=== PATIENT | female | born 1980 | race Caucasian/White ===

== ENCOUNTER 2019-12-07 12:57 | Emergency (ER) | payer OTHER ==
[~2019-12-07] VITALS: Ht 182.9 cm; Wt 238.1 kg
--- OUTSIDE RECORDS SUMMARY | ~2019-12-07 | XMS | Encounter Summary ---
Demographics + + + | Address | [address] | | | [place] [address] | + + + | Home Phone | | + + + | Preferred Language | Unknown | + + + | Marital Status | Single | + + + | Anabaptist Affiliation | Unknown | + + + | Race | White | + + + | Ethnic Group | Not or | + + + Author + + + | Author | [facility] | | | and [place] | + + + | Organization | [facility] | | | and [place] | + + + | Address | Unknown | + + + | Phone | Unavailable | + + + Support + + +---------+ + | Name | Relationship | Address | Phone | + + +---------+ + | Jarett E Chad | ECON | Unknown | | + + +---------+ + Care Team Providers + +------+ + | Care Senior Controls Technician Name | Role | Phone | + +------+ + | Seamus Stokes DO | PCP | | + +------+ + Reason for Visit + + + | Reason | Comments | + + + | New Patient | | + + + Evaluate & Treat (Routine) + +--------+ + + + + | Status | Reason | Specialty | Diagnoses / | Referred By | Referred To | | | | | Procedures | Contact | Contact | + +--------+ + + + + | Authorized | | Cardiology | Diagnoses | Divya, | [facility] | | | | | | Seamus, | Cardiology | | | | | Uncontrolled | [address] | [address] | | | | | | [place] | [place], | | | | | hypertension | [place], [place] | [place] | | | | | LVH (left | [phone] | [address] | | | | | ventricular | Phone: | Phone: | | | | | hypertrophy) | [phone] | [phone] | | | | | Procedures | Fax: | Fax: | | | | | [facility] | [phone] | [phone] | + +--------+ + + + + Encounter Details +--------+---------+ + + + | Date | Type | Department | Care Team | Description | +--------+---------+ + + + | 05/03/ | Office | [facility] | Lauri Webb | Uncontrolled | | 2020 | Visit | CARDIOLOGY [address] | [address] | hypertension | | | | [address], | [address] [place] | (Primary Dx); | | | | [place] [address] | [place] [address] | Tachycardia; LVH | | | | [phone] | [phone] | (left ventricular | | | | | | hypertrophy); | | | | | | Hypertensive | | | | | | urgency; Morbid | | | | | | obesity (HCC); SOB | | | | | | (shortness of | | | | | | breath) | +--------+---------+ + + + Social History + +-------+ +--------+------+ | Tobacco Use | Types | Packs/Day | Years | Date | | | | | Used | | + +-------+ +--------+------+ | Never Smoker | | | | | + +-------+ +--------+------+ + +---+---+---+ | Smokeless Tobacco: | | | | | Never Used | | | | + +---+---+---+ + + +---------+ + | Alcohol Use | Drinks/Week | oz/Week | Comments | + + +---------+ + | Yes | | | | + + +---------+ + + + + | Sex Assigned at | Date Recorded | | | | + + + | Not on file | | + + + documented as of this encounter Last Filed Vital Signs + + + + + | Vital Sign | Reading | Time Taken | Comments | + + + + + | Blood Pressure | 260/150 | 05/04/2019 3:09 PM | | | | | PST | | + + + + + | Pulse | 104 | 05/04/2019 3:09 PM | | | | | PST | | + + + + + | Temperature | - | - | | + + + + + | Respiratory Rate | 24 | 05/04/2019 3:09 PM | | | | | PST | | + + + + + | Oxygen Saturation | - | - | | + + + + + | Inhaled Oxygen | - | - | | | Concentration | | | | + + + + + | Weight | 236 kg (520 lb 4.6 | 05/04/2019 3:09 PM | | | | oz) | PST | | + + + + + | Height | 182.9 cm (6') | 05/04/2019 3:09 PM | | | | | PST | | + + + + + | Body Mass Index | 70.56 | 05/04/2019 3:09 PM | | | | | PST | | + + + + + documented in this encounter Progress Notes Lauri Webb MD - 05/04/2019 3:30 PM PSTFormatting of this note might be differe nt from the original. PATIENT NAME: Carol Jones : 1980: AGE: 39 y.o. REFERRED BY: Seamus Stokes DO PRIMARY CARE: Seamus Stokes DO CARDIOLOGY OFFICE VISIT Date of Service: 05/04/19 HISTORY OF PRESENT ILLNESS: Carol Jones is a 39 y.o. female with a history of severe, refractory hypertensio n, morbid obesity, anxiety/depression, migraines, and PCOD. She is being seen today for fur ther consultation. She is referred by Seamus Stokes DO for further evaluation given history of severe hyperte nsion. Patient states that she was last prescribed a maximal dose of diltiazem which exacer bated her headaches and she has not taken it in many weeks. For many years in the past, she has been without health insurance and had not been taking any medications. She believes th at for some time she was on lisinopril which she tolerated well and took until she lost her health coverage. She also states that she had managed to take clonidine without difficulty. Her history of severe refractory hypertension dates back approximately 10 years, and appea rs to have been better controlled approximately 5 years ago for unclear reasons. She has been aware of the possibility of obstructive sleep apnea but has not been intereste d in testing and refuses to consider wearing a CPAP mask. She is unaware of previous testin g for renal artery stenosis. She exceeds weight limits of most diagnostic tables. She works near full-time and can manage every day activity without difficulty. She ambulat es without any assistive devices. She denies any exertional symptoms or chest pain. She wasserman s no history of cardiovascular disease, heart failure, myocardial infarction, stroke/TIA or cardiomyopathy. MEDICAL, SURGICAL, AND PERSONAL HISTORY Past Medical History: Diagnosis Date Arthritis 04/12/2019 Asthma Carpal tunnel syndrome on right 04/12/2019 Depression 04/12/2019 Hypothyroid 04/12/2019 Renal insufficiency Scoliosis 04/12/2019 SOB (shortness of breath) 04/12/2019 Tachycardia 04/12/2019 Past Surgical History: Procedure Laterality Date CARPAL TUNNEL RELEASE CHOLECYSTECTOMY Family History Problem Relation Age of Onset Diabetes Mother Osteoporosis Mother Ovarian cancer Mother Thyroid disease Maternal Grandmother hypothyroidism Diabetes Maternal Grandfather Bipolar disorder Maternal Grandfather Heart disease Paternal Grandmother Thyroid disease Paternal Grandmother hypothyroidism Heart disease Paternal Grandfather Endometriosis Other Rheum arthritis Other Lupus Other Family Status Relation Name Status Mother (Not Specified) MGM (Not Specified) MGF (Not Specified) PGM (Not Specified) PGF (Not Specified) Other (Not Specified) Social History Socioeconomic History Marital status: Single Spouse name: Not on file Number of children: Not on file Years of education: Not on file Highest education level: Not on file Tobacco Use Smoking status: Never Smoker Smokeless tobacco: Never Used Substance and Sexual Activity Alcohol use: Yes CURRENT MEDICATIONS Current Outpatient Medications Medication Sig Dispense Refill albuterol 90 mcg/puff inhaler Inhale 2 puffs into the lungs every 6 hours as needed for Wheezing. 1 Inhaler 0 Ascorbic Acid (VITAMIN C) 1000 MG tablet Take 1,000 mg by mouth Daily. budesonide-formoterol (SYMBICORT) 160-4.5 mcg/puff inhaler Inhale 1 puff into the lungs 2 times daily. cholecalciferol (VITAMIN D-3) 125 mcg (5,000 units) tablet Take 125 mcg by mouth Daily. diclofenac (VOLTAREN) 1% GEL Apply 2 g topically as needed. 3 dilTIAZem (CARDIZEM CD) 120 mg 24 hr capsule Take 120 mg by mouth Daily. Takes along wi th 360 mg capsule for a total of 480 mg. dilTIAZem (CARDIZEM CD) 360 MG 24 hr capsule Take 360 mg by mouth Daily. Takes along wi th 120 mg capsule for a total of 480 mg. medroxyPROGESTERone (DEPO-PROVERA) 150 mg/mL injection (vial) Inject 150 mg into the mu scle Every 3 months. melatonin 5 mg tablet Take 5 mg by mouth nightly as needed for Insomnia. ondansetron (ZOFRAN ODT) 4 mg disintegrating tablet Take 4 mg by mouth as needed. 3 spironolactone (ALDACTONE) 25 mg tablet Take 25 mg by mouth Daily. SUMAtriptan (IMITREX) 25 mg tablet Take 25 mg by mouth as needed. 1 vitamin B complex capsule Take 1 capsule by mouth Daily. No current facility-administered medications for this visit. ALLERGIES Allergies Allergen Reactions Benadryl Anti-Itch Childrens [Camphor] Anaphylaxis Morphine Anaphylaxis Grass Extracts [Gramineae Pollens] Other (See Comments) Clarify with patient. Iron Other (See Comments) Clarify with patient Lactose Other (See Comments) Clarify with patient Latex Rash ROS I have reviewed the Review of Systems form dated today and scanned into the media tab. OBJECTIVE: PHYSICAL EXAM BP (!) 260/150 | Pulse 104 | Resp 24 | Ht 1.829 m (6') | Wt (!) 236 kg (520 lb 4.6 oz) | BMI 70.56 kg/m Physical Exam Constitutional: She is oriented to person, place, and time. She appears well-developed and well-nourished. HENT: Head: Normocephalic. Eyes: No scleral icterus. Neck: Normal carotid pulses and no JVD present. Carotid bruit is not present. Cardiovascular: Regular rhythm, S1 normal, S2 normal, normal heart sounds, intact distal pu lses and normal pulses. Tachycardia present. PMI is not displaced. Exam reveals no gallop an d no midsystolic click. No murmur heard. Pulses: Carotid pulses are 2+ on the right side and 2+ on the left side. Radial pulses are 2+ on the right side and 2+ on the left side. Pulmonary/Chest: Effort normal and breath sounds normal. No accessory muscle usage. No resp iratory distress. She has no wheezes. She has no rhonchi. She has no rales. Abdominal: Soft. Normal aorta and bowel sounds are normal. She exhibits no abdominal bruit. There is no hepatosplenomegaly. There is no abdominal tenderness. Morbidly obese. Musculoskeletal: General: No edema. Neurological: She is alert and oriented to person, place, and time. Gait normal. Skin: Skin is warm and dry. No cyanosis. Nails show no clubbing. Psychiatric: She has a normal mood and affect. Her mood appears not anxious. She does not e xhibit a depressed mood. Vitals reviewed. ECG: Reviewed by me notable for sinus tachycardia, heart rate 103, voltage criteria for LVH with repolarization abnormality. LAB RESULTS: LIPID Lab Results Component Value Date LDLEX 108 (A) 11/19/2018 HDLEX 5 11/19/2018 TRIGEX 153 11/19/2018 CHOLEX 177 11/19/2018 CHEMISTRY Lab Results Component Value Date GLU 105 11/12/2018 GLUEX 109 (A) 11/19/2018 NA 140 11/12/2018 NAEX 137 11/19/2018 K 3.2 (L) 11/12/2018 KEX 3.0 (A) 11/19/2018 CL 104 11/12/2018 CLEX 98 11/19/2018 CO2 25 11/12/2018 CO2EX 29 11/19/2018 CALCIUM 9.7 11/12/2018 ALKPHOS 73 11/12/2018 AST 23 11/12/2018 ASTEX 30 11/19/2018 ALT 34 11/12/2018 ALTEX 40 11/19/2018 BILITOT 0.5 11/12/2018 CREA 1.04 (H) 11/12/2018 BUN 14 11/12/2018 EGFREX 53 11/19/2018 CREEX 1.1 11/19/2018 HEMATOLOGY Lab Results Component Value Date WBC 10.2 11/12/2018 HGB 13.3 11/12/2018 HCT 41.6 11/12/2018 PLT 261 11/12/2018 I reviewed records from PCP for office visit on 12/01/2018. Ambulatory blood pressure log January 2014 results reviewed by me notable for average syst olic 149 mmHg, average diastolic 75 mmHg, average heart rate 83 bpm. ASSESSMENT: 1. Severe, refractory hypertension -patient's blood pressure today was assessed via attemp ts at measurement via her forearm, and repeated. Patient admits that she has not been on an y antihypertensives per weeks and stopped taking diltiazem sometime ago because of complaint s of headaches. We discussed my recommendation that she go to emergency room for intravenou s medical therapy and further observation before going home, however patient is not interest ed, and states that in the past she has not been a good candidate for intravenous access in any event. She wishes to go home. In the past she has been intolerant to lisinopril. We will prescribe this at her previous dose of 20 mg daily. I have urged her to check her chemistry panel including renal function and electrolytes prior to her upcoming appointment with her primary provider within 1 week. In terms of contributing factors towards secondary hypertension, she can be safely presumed to have some degree of underlying obstructive sleep apnea given her morbid obesity. She is not interested in further testing or any attempts at CPAP mask therapy in any event. Her w eight exceeds table limits to be adequately assessed for possibility of renal artery stenosi s. Her exam is similarly limited. In any event, first she needs to be compliant with 3 or more antihypertensive agents before any further testing for rare causes such as endocrine ab normalities are warranted. We discussed at length importance of medical compliance. We als o discussed at length importance of some semblance of antihypertensive control, especially v is--vis neurologic sequelae which were reviewed at length. Patient denies having had any of them including no cognitive issues, including no visual or speech difficulty, or issues w ith ambulation. She may benefit from future additional therapy with several other agents including beta-blo cker therapy given her resting tachycardia - and assess for respiratory tolerance - and ALEJANDRA inhibitor versus ARB therapy (her renal parameters are within normal limits at this point) a nd other agents such as clonidine. She may also respond well to attempts at diuretic therap y. We also discussed importance of minimizing her caffeine use which she admits is excessive. She indulges in energy drinks in addition to significant amount of coffee, which she states helps manage her ADHD. I cautioned her against use of amphetamine derivatives to treat ADH D given her baseline tachycardia and extreme hypertension. Her ECG suggests underlying LVH which is not surprising. Her examination, albeit limited, did not suggest significant underlying valvular disease. PLAN: 1. Resume lisinopril therapy given prior tolerance. Consider future additional therapy wi th other agents such as beta blockers, ALEJANDRA inhibitor/ARB, and clonidine plus consideration o f diuretic therapy. 2. Recheck chemistry panel prior to follow-up visit with primary physician. 3. Importance of medical compliance reinforced. 4. Minimize caffeine use and improve hydration. 5. Patient refuses transfer to emergency department for intravenous medical therapy and fu rther monitoring today. 6. Neurologic sequelae of extreme hypertension and TIA versus CVA reviewed with the eneida t today. 7. Further cardiovascular diagnostics not feasible given morbid obesity, and not especiall y indicated in any event. 8. Follow-up in an as-needed basis. I spent 60 minutes face to face with the patient, with over 50% spent in counseling and/or coordination of care regarding severe, refractory hypertension and suggestions for further w ork-up and management. Portions of this report were transcribed using voice recognition software. Every effort wa s made to ensure accuracy; however, inadvertent computerized fish and wildlife scientific aid errors may be pre sent. Electronically signed by: Ben Webb MD PhD FACC 05/04/2019 documented in t his encounter Miscellaneous Notes Addendum Note - Oswaldo Matos RN - 05/04/2019 3:30 PM PST Addended by: OSWALDO MATOS on: 05/05/2019 09:27 AM Modules accepted: Orders documented in this encounter Plan of Treatment + +------+--------+ + + | Name | Type | Priori | Associated Diagnoses | Order Schedule | | | | ty | | | + +------+--------+ + + | Basic Metabolic | Lab | Routin | Uncontrolled | Expected: | | Panel | | e | hypertension | 05/12/2019, Expires: | | | | | | 05/04/2020 | + +------+--------+ + + documented as of this encounter Procedures + +--------+ + + + | Procedure Name | Priori | Date/Time | Associated Diagnosis | Comments | | | ty | | | | + +--------+ + + + | ECG 12 LEAD | Routin | 05/04/2019 | Uncontrolled | Results for this | | | e | 3:21 PM | hypertension | procedure are in the | | | | PST | Tachycardia | results section. | + +--------+ + + + documented in this encounter Results ECG 12 lead (05/04/2019 3:21 PM PST) + + + + + + | Component | Value | Ref Range | Performed | Pathologist | | | | | At | Signature | + + + + + + | VENTRICULAR | 103 | BPM | [facility] | | | RATE EKG | | | | | + + + + + + | ATRIAL RATE | 103 | BPM | [facility] | | + + + + + + | P-R | 172 | ms | [facility] | | | INTERVAL | | | | | + + + + + + | QRS | 112 | ms | [facility] | | | DURATION | | | | | + + + + + + | Q-T | 368 | ms | [facility] | | | INTERVAL | | | | | + + + + + + | Q-T | 482 | ms | [facility] | | | INTERVAL | | | | | | (CORRECTED) | | | | | + + + + + + | P WAVE AXIS | 31 | degrees | [facility] | | + + + + + + | QRS AXIS | -28 | degrees | [facility] | | + + + + + + | T AXIS | 68 | degrees | [facility] | | + + + + + + | INTERPRETAT | Sinus tachycardiaLeft | | [facility] | | | ION TEXT | ventricular hypertrophy | | | | | | with repolarization | | | | | | abnormalityAbnormal | | | | | | ECGWhen compared with | | | | | | ECG of 12-NOV-2018 | | | | | | 11:19,No significant | | | | | | change was | | | | | | foundConfirmed by | | | | | | ESTHER BASILIO, KACEY | | | | | | ([id number]) on 05/06/2019 | | | | | | 12:46:21 PM | | | | + + + + + + + + | Specimen | + + | | + + + + + | Narrative | Performed At | + + + | | | + + + + +---------+ + + | Performing | Address | City/State/Zipcode | Phone Number | | Organization | | | | + +---------+ + + | [facility] | | | | + +---------+ + + documented in this encounter Visit Diagnoses + + | Diagnosis | + + | Uncontrolled hypertension - Primary Unspecified essential hypertension | + + | Tachycardia Tachycardia, unspecified | + + | LVH (left ventricular hypertrophy) Cardiomegaly | + + | Hypertensive urgency Unspecified essential hypertension | + + | Morbid obesity (HCC) Morbid obesity | + + | SOB (shortness of breath) Shortness of breath | + + documented in this encounter"
--- OUTSIDE RECORDS SUMMARY | ~2019-12-07 | XMS | Clinical Summary ---
Demographics + + + | Address | [address] | | | [place] [address] | + + + | Home Phone | | + + + | Preferred Language | Unknown | + + + | Marital Status | Single | + + + | Episcopal Affiliation | Unknown | + + + | Race | White | + + + | Ethnic Group | Not or | + + + Author + + + | Author | [facility] | | | and [place] | + + + | Organization | [facility] | | | [...] Team Providers + +------+ + | Care Hematology Technologist Name | Role | Phone | + +------+ + | Seamus Stokes DO | PCP | | + +------+ + Allergies + + + + + + | Active Allergy | Reactions | Severity | Noted | Comments | | | | | Date | | + + + + + + | Camphor | Anaphylaxis | High | 10/11/19 | | | | | | 19 | | + + + + + + | Gramineae Pollens | Other (See Comments) | | 04/12/19 | Clarify with | | | | | 20 | patient. | + + + + + + | Iron | Other (See Comments) | | 04/12/19 | Clarify with | | | | | 20 | patient | + + + + + + | Lactose | Other (See Comments) | | 04/12/19 | Clarify with | | | | | 20 | patient | + + + + + + | Latex | Rash | Low | 10/11/19 | | | | | | 19 | | + + + + + + | Morphine | Anaphylaxis | High | 10/11/19 | | | | | | 19 | | + + + + + + Medications + + + +---------+------+------+-------+ | Medication | Sig | Dispensed | Refills | Star | End | Statu | | | | | | t | Date | s | | | | | | Date | | | + + + +---------+------+------+-------+ | albuterol 90 | Inhale 2 puffs into | 1 | 0 | 10/31 | | Activ | | mcg/puff inhaler | the lungs every 6 | Inhaler | | 3/20 | | e | | | hours as needed for | | | 19 | | | | | Wheezing. | | | | | | + + + +---------+------+------+-------+ +---+ + | | Additional | | | InformationPatient | | | not taking. Reported | | | on 05/04/2019 3:18 | | | PM | +---+ + + + +--------+---+------+---+-------+ | SUMAtriptan | Take 25 mg by mouth | | 1 | 090 | | Activ | | (IMITREX) 25 mg | as needed. | | | 06/19 | | e | | tablet | | | | 19 | | | + + +--------+---+------+---+-------+ | diclofenac | Apply 2 g topically | | 3 | 08 | | Activ | | (VOLTAREN) 1% GEL | as needed. | | | 05/19 | | e | | | | | | 19 | | | + + +--------+---+------+---+-------+ | ondansetron | Take 4 mg by mouth | | 3 | 05/2 | | Activ | | (ZOFRAN ODT) 4 mg | as needed. | | | 0 | | e | | disintegrating | | | | 19 | | | | tablet | | | | | | | + + +--------+---+------+---+-------+ | dilTIAZem | Take 360 mg by mouth | | 0 | | | Activ | | (CARDIZEM CD) 360 MG | Daily. Takes along | | | | | e | | 24 hr capsule | with 120 mg capsule | | | | | | | | for a total of 480 | | | | | | | | mg. | | | | | | + + +--------+---+------+---+-------+ | | Inject 150 mg into | | 0 | | | Activ | | medroxyPROGESTERone | the muscle Every 3 | | | | | e | | (DEPO-PROVERA) 150 | months. | | | | | | | mg/mL injection | | | | | | | | (vial) | | | | | | | + + +--------+---+------+---+-------+ | melatonin 5 mg | Take 5 mg by mouth | | 0 | | | Activ | | tablet | nightly as needed | | | | | e | | | for Insomnia. | | | | | | + + +--------+---+------+---+-------+ | | Inhale 1 puff into | | 0 | | | Activ | | budesonide-formotero | the lungs 2 times | | | | | e | | l (SYMBICORT) | daily. | | | | | | | 160-4.5 mcg/puff | | | | | | | | inhaler | | | | | | | + + +--------+---+------+---+-------+ | cholecalciferol | Take 125 mcg by | | 0 | | | Activ | | (VITAMIN D-3) 125 | mouth Daily. | | | | | e | | mcg (5,000 units) | | | | | | | | tablet | | | | | | | + + +--------+---+------+---+-------+ | Ascorbic Acid | Take 1,000 mg by | | 0 | | | Activ | | (VITAMIN C) 1000 MG | mouth Daily. | | | | | e | | tablet | | | | | | | + + +--------+---+------+---+-------+ | vitamin B complex | Take 1 capsule by | | 0 | | | Activ | | capsule | mouth Daily. | | | | | e | + + +--------+---+------+---+-------+ | dilTIAZem | Take 120 mg by mouth | | 0 | | | Activ | | (CARDIZEM CD) 120 mg | Daily. Takes along | | | | | e | | 24 hr capsule | with 360 mg capsule | | | | | | | | for a total of 480 | | | | | | | | mg. | | | | | | + + +--------+---+------+---+-------+ | lisinopril | Take 1 tablet by | 90 | 3 | 03/0 | | Activ | | (PRINIVIL, ZESTRIL) | mouth Daily. | tablet | | 5/20 | | e | | 20 mg | | | | 20 | | | | tabletIndications: | | | | | | | | Uncontrolled | | | | | | | | hypertension | | | | | | | + + +--------+---+------+---+-------+ Active Problems + + + | Problem | Noted Date | + + + | LVH (left ventricular hypertrophy) | 04/12/2019 | + + + | Anxiety | 04/12/2019 | + + + | Depression | 04/12/2019 | + + + | Hypokalemia | 04/12/2019 | + + + | Morbid obesity | 04/12/2019 | + + + | Polycystic ovarian syndrome | 04/12/2019 | + + + | SOB (shortness of breath) | 04/12/2019 | + + + | Scoliosis | 04/12/2019 | + + + | Arthritis | 04/12/2019 | + + + | Hypothyroid | 04/12/2019 | + + + | Tachycardia | 04/12/2019 | + + + | Hypertensive urgency | 04/12/2019 | + + + | Carpal tunnel syndrome on right | 04/12/2019 | + + + | Uncontrolled hypertension | 02/02/2014 | + + + | Asthma | | + + + Family History + + +------+ + | Medical History | Relation | Name | Comments | + + +------+ + | Bipolar disorder | Maternal | | | | | Grandfath | | | | | er | | | + + +------+ + | Diabetes | Maternal | | | | | Grandfath | | | | | er | | | + + +------+ + | Thyroid disease | Maternal | | hypothyroidism | | | Grandmoth | | | | | er | | | + + +------+ + | Diabetes | Mother | | | + + +------+ + | Osteoporosis | Mother | | | + + +------+ + | Ovarian cancer | Mother | | | + + +------+ + | Endometriosis | Other | | | + + +------+ + | Lupus | Other | | | + + +------+ + | Rheum arthritis | Other | | | + + +------+ + | Heart disease | Paternal | | | | | Grandfath | | | | | er | | | + + +------+ + | Parkinsonism | Paternal | | | | | Grandfath | | | | | er | | | + + +------+ + | Heart disease | Paternal | | | | | Grandmoth | | | | | er | | | + + +------+ + | Thyroid disease | Paternal | | hypothyroidism | | | Grandmoth | | | | | er | | | + + +------+ + + +------+--------+ + | Relation | Name | Status | Comments | + +------+--------+ + | Maternal Grandfather | | | | + +------+--------+ + | Maternal Grandmother | | | | + +------+--------+ + | Mother | | | | + +------+--------+ + | Other | | | | + +------+--------+ + | Paternal Grandfather | | Alive | | + +------+--------+ + | Paternal Grandmother | | | | + +------+--------+ + Social History + +-------+ +--------+------+ | [...] on file | | + + + Last Filed Vital Signs + + + [...] + + + + | Temperature | 38.2 C (100.7 F) | 11/12/2018 10:55 AM | | | | | PDT | | + + + + + | Respiratory Rate | 24 | 05/04/2019 3:09 PM | | | | | PST | | + + + + + | Oxygen Saturation | 100% | 11/12/2018 2:45 PM | | | | | PDT | | + + + + + [...] | | + + + + + Plan of Treatment + + + + + | Health Maintenance | Due Date | Last | Comments | | | | Done | | + + + + + | Hepatitis C | | | | | Screening | 9 | | | + + + + + | Med Mgmt: Vit D | | | | | | 9 | | | + + + + + | Medication | | | | | Management | 9 | | | + + + + + | Vaccine: | | | | | Pneumococcal 19-64 | 5 | | | | (1 of 1 - PPSV23) | | | | + + + + + | Vaccine: | | | | | Dtap/Tdap/Td (1 - | 8 | | | | Tdap) | | | | + + + + + | Cervical Cancer | | | | | Screening (Pap) | 9 | | | + + + + + | Vaccine: Influenza | | 12/08/19 | | | (#1) | 0 | 15, | | | | | 12/26/19 | | | | | 14 | | + + + + + | Med Mgmt: BUN | | 11/20/19 | | | | 0 | 19, | | | | | 11/19/19 | | | | | 19, | | | | | 11/13/19 | | | | | 19 | | + + + + + | Med Mgmt: Cr | | 11/20/19 | | | | 0 | 19, | | | | | 11/19/19 | | | | | 19, | | | | | 11/13/19 | | | | | 19 | | + + + + + | Med Mgmt: K | | 11/20/19 | | | | 0 | 19, | | | | | 11/19/19 | | | | | 19, | | | | | 11/13/19 | | | | | 19 | | + + + + + Results Not on filefrom Last 3 Months Insurance + +--------+ +--------+ +---------+------+ | Payer | Benefi | Subscriber | Effect | Phone | Address | Type | | | t Plan | ID | chelly | | | | | | / | | Dates | | | | | | Group | | | | | | + +--------+ +--------+ +---------+------+ | [employer] | PACIFI | [id number] | | [phone] | | PPO | | | CSOURC | | 018-Pr | 2 | | | | | E | | esent | | | | | | FIRST | | | | | | | | CHOICE | | | | | | + +--------+ +--------+ +---------+------+ + +--------+ +--------+ + + | Guarantor Name | Accoun | Relation to | Date | Phone | Billing Address | | | t Type | Patient | of | | | | | | | | | | + +--------+ +--------+ + + | Carol Jones | Person | Self [birth year] | [address] | | [place] | al/Fam | | 1980 | [phone] | [place] [address] | | | jo | | | 4 (Home) | | | | | | | [phone] | | | | | | | 6 (Work) | | + +--------+ +--------+ + + Advance Directives + + + + + | Type | Date Recorded | Patient | Explanation | | | | Contact Lens Cutter | | + + + + + | Power of | | | | | [employer] | | | | + + + + + | Advance | 02/14/2014 | | | | Directive | 9:09 AM | | | + + + + +"
--- OUTSIDE RECORDS SUMMARY | ~2019-12-07 | XMS | Encounter Summary ---
Demographics + + + | Address | [address] | | | [place] [address] | + + + | Home Phone | | + + + | Preferred Language | Unknown | + + + | Marital Status | Single | + + + | Jainism Affiliation | Unknown | + + + | Race | White | + + + | Ethnic Group | Not or | + + + Author + + + | Author | [facility] | | | and [place] | + + + | Organization | [facility] | | | and [...] Team Providers + +------+ + | Care Administrative Support Coordinator Name | Role | Phone | + +------+ + | Seamus Stokes DO | PCP | | + +------+ + Encounter Details +--------+ + + + + | Date | Type | Department | Care Team | Description | +--------+ + + + + | 04/20/ | Abstract | [facility] [place] | Lauri Webb | | | 2019 | | CARDIOLOGY [address] | [address] | | | | | [place], | [address] | | | | | [place] [address] | [place] [address] | | | | | [phone] | [phone] | | | | | | | | +--------+ + + + + Social History + +-------+ [...] + + documented as of this encounter Plan of Treatment Not on filedocumented as of this encounter Procedures + +--------+ + + + | Procedure Name | Priori | Date/Time | Associated Diagnosis | Comments | | | ty | | | | + +--------+ + + + | EXTERNAL LAB: RHETT | Routin | 11/19/2018 | | Results for this | | | e | | | procedure are in the | | | | | | results section. | + +--------+ + + + | EXTERNAL LAB: | Routin | 11/19/2018 | | Results for this | | GLUCOSE | e | | | procedure are in the | | | | | | results section. | + +--------+ + + + | EXTERNAL LAB: ALT | Routin | 11/19/2018 | | Results for this | | | e | | | procedure are in the | | | | | | results section. | + +--------+ + + + | EXTERNAL LAB: AST | Routin | 11/19/2018 | | Results for this | | | e | | | procedure are in the | | | | | | results section. | + +--------+ + + + | EXTERNAL LAB: | Routin | 11/19/2018 | | Results for this | | ALKALINE PHOSPHATASE | e | | | procedure are in the | | | | | | results section. | + +--------+ + + + | EXTERNAL LAB: | Routin | 11/19/2018 | | Results for this | | BILIRUBIN, TOTAL | e | | | procedure are in the | | | | | | results section. | + +--------+ + + + | EXTERNAL LAB: | Routin | 11/19/2018 | | Results for this | | ALBUMIN | e | | | procedure are in the | | | | | | results section. | + +--------+ + + + | EXTERNAL LAB: | Routin | 11/19/2018 | | Results for this | | PROTEIN, TOTAL | e | | | procedure are in the | | | | | | results section. | + +--------+ + + + | EXTERNAL LAB: | Routin | 11/19/2018 | | Results for this | | CALCIUM | e | | | procedure are in the | | | | | | results section. | + +--------+ + + + | EXTERNAL LAB: CARBON | Routin | 11/19/2018 | | Results for this | | DIOXIDE | e | | | procedure are in the | | | | | | results section. | + +--------+ + + + | EXTERNAL LAB: | Routin | 11/19/2018 | | Results for this | | CHLORIDE | e | | | procedure are in the | | | | | | results section. | + +--------+ + + + | EXTERNAL LAB: | Routin | 11/19/2018 | | Results for this | | POTASSIUM | e | | | procedure are in the | | | | | | results section. | + +--------+ + + + | EXTERNAL LAB: SODIUM | Routin | 11/19/2018 | | Results for this | | | e | | | procedure are in the | | | | | | results section. | + +--------+ + + + | EXTERNAL LAB: TSH | Routin | 11/19/2018 | | Results for this | | | e | | | procedure are in the | | | | | | results section. | + +--------+ + + + | EXTERNAL LAB: B TYPE | Routin | 11/19/2018 | | Results for this | | NATURETIC PEPTIDE | e | | | procedure are in the | | | | | | results section. | + +--------+ + + + | EXTERNAL LAB: | Routin | 11/19/2018 | | Results for this | | TRIGLYCERIDES | e | | | procedure are in the | | | | | | results section. | + +--------+ + + + | EXTERNAL LAB: | Routin | 11/19/2018 | | Results for this | | CHOLESTEROL, HDL | e | | | procedure are in the | | | | | | results section. | + +--------+ + + + | EXTERNAL LAB: | Routin | 11/19/2018 | | Results for this | | CHOLESTEROL, TOTAL | e | | | procedure are in the | | | | | | results section. | + +--------+ + + + | EXTERNAL LAB: | Routin | 11/19/2018 | | Results for this | | CHOLESTEROL, LDL | e | | | procedure are in the | | | | | | results section. | + +--------+ + + + | EXTERNAL LAB: EGFR | Routin | 11/19/2018 | | Results for this | | | e | | | procedure are in the | | | | | | results section. | + +--------+ + + + | EXTERNAL LAB: | Routin | 11/19/2018 | | Results for this | | CREATININE | e | | | procedure are in the | | | | | | results section. | + +--------+ + + + | HEMOGLOBIN A1C | Routin | 11/19/2018 | | Results for this | | | e | | | procedure are in the | | | | | | results section. | + +--------+ + + + | COMPREHENSIVE | Routin | 11/18/2018 | | Results for this | | METABOLIC PANEL | e | | | procedure are in the | | | | | | results section. | + +--------+ + + + documented in this encounter Results Hemoglobin A1C (11/19/2018) + +-------+ + + + | Component | Value | Ref Range | Performed | Pathologist | | | | | At | Signature | + +-------+ + + + | Hemoglobin | 5.6 | 4.5 - 5.9 % | | | | A1c | | | | | + +-------+ + + + + + | Specimen | + + | Blood | + + External Lab: TSH (11/19/2018) + +-------+ + + + | Component | Value | Ref Range | Performed | Pathologist | | | | | At | Signature | + +-------+ + + + | TSH, | 4.73 | 0.5 - 5.8 | | | | External | | | | | + +-------+ + + + + + | Specimen | + + | Blood | + + External Lab: Triglycerides (11/19/2018) + +-------+ + + + | Component | Value | Ref Range | Performed | Pathologist | | | | | At | Signature | + +-------+ + + + | Triglycerid | 153 | 35 - 160 | | | | es, | | | | | | External | | | | | + +-------+ + + + + + | Specimen | + + | Blood | + + External Lab: Cholesterol, HDL (11/19/2018) + +-------+ + + + | Component | Value | Ref Range | Performed | Pathologist | | | | | At | Signature | + +-------+ + + + | HDL | 5 | 0 - 5 mg/dl | | | | Cholesterol | | | | | | , External | | | | | + +-------+ + + + + + | Specimen | + + | Blood | + + External Lab: Cholesterol, Total (11/19/2018) + +-------+ + + + | Component | Value | Ref Range | Performed | Pathologist | | | | | At | Signature | + +-------+ + + + | Cholesterol | 177 | 120 - 200 mg/dl | | | | , Total, | | | | | | External | | | | | + +-------+ + + + + + | Specimen | + + | Blood | + + External Lab: Cholesterol, LDL (11/19/2018) + +---------+ + + + | Component | Value | Ref Range | Performed | Pathologist | | | | | At | Signature | + +---------+ + + + | LDL | 108 (A) | 0 - 99 | | | | Cholesterol | | | | | | , Direct, | | | | | | External | | | | | + +---------+ + + + + + | Specimen | + + | Blood | + + External Lab: BUN (11/19/2018) + +--------+ + + + | Component | Value | Ref Range | Performed | Pathologist | | | | | At | Signature | + +--------+ + + + | BUN, | 24 (A) | 7 - 18 | | | | External | | | | | + +--------+ + + + External Lab: Glucose (11/19/2018) + +---------+ + + + | Component | Value | Ref Range | Performed | Pathologist | | | | | At | Signature | + +---------+ + + + | Glucose, | 109 (A) | 70 - 100 | | | | External | | | | | + +---------+ + + + External Lab: ALT (11/19/2018) + +-------+ + + + | Component | Value | Ref Range | Performed | Pathologist | | | | | At | Signature | + +-------+ + + + | ALT, | 40 | 10 - 48 | | | | External | | | | | + +-------+ + + + External Lab: AST (11/19/2018) + +-------+ + + + | Component | Value | Ref Range | Performed | Pathologist | | | | | At | Signature | + +-------+ + + + | AST, | 30 | 10 - 42 | | | | External | | | | | + +-------+ + + + External Lab: Alkaline Phosphatase (11/19/2018) + +-------+ + + + | Component | Value | Ref Range | Performed | Pathologist | | | | | At | Signature | + +-------+ + + + | ALP, | 65 | 32 - 92 | | | | External | | | | | + +-------+ + + + External Lab: Bilirubin, Total (11/19/2018) + +-------+ + + + | Component | Value | Ref Range | Performed | Pathologist | | | | | At | Signature | + +-------+ + + + | Bilirubin, | 0.7 | 0.2 - 1.2 | | | | Total, | | | | | | External | | | | | + +-------+ + + + External Lab: Albumin (11/19/2018) + +-------+ + + + | Component | Value | Ref Range | Performed | Pathologist | | | | | At | Signature | + +-------+ + + + | Albumin, | 4 | 3.5 - 5 | | | | External | | | | | + +-------+ + + + External Lab: Protein, Total (11/19/2018) + +-------+ + + + | Component | Value | Ref Range | Performed | Pathologist | | | | | At | Signature | + +-------+ + + + | Protein, | 7.1 | 6 - 8.1 | | | | Total, | | | | | | External | | | | | + +-------+ + + + External Lab: Calcium (11/19/2018) + +-------+ + + + | Component | Value | Ref Range | Performed | Pathologist | | | | | At | Signature | + +-------+ + + + | Calcium, | 10.2 | 8.4 - 10.5 | | | | External | | | | | + +-------+ + + + External Lab: Carbon Dioxide (11/19/2018) + +-------+ + + + | Component | Value | Ref Range | Performed | Pathologist | | | | | At | Signature | + +-------+ + + + | Carbon | 29 | 21 - 31 | | | | Dioxide, | | | | | | External | | | | | + +-------+ + + + External Lab: Chloride (11/19/2018) + +-------+ + + + | Component | Value | Ref Range | Performed | Pathologist | | | | | At | Signature | + +-------+ + + + | Chloride, | 98 | 98 - 107 | | | | External | | | | | + +-------+ + + + External Lab: Potassium (11/19/2018) + +---------+ + + + | Component | Value | Ref Range | Performed | Pathologist | | | | | At | Signature | + +---------+ + + + | Potassium, | 3.0 (A) | 3.6 - 5 | | | | External | | | | | + +---------+ + + + External Lab: Sodium (11/19/2018) + +-------+ + + + | Component | Value | Ref Range | Performed | Pathologist | | | | | At | Signature | + +-------+ + + + | Sodium, | 137 | 135 - 145 | | | | External | | | | | + +-------+ + + + External Lab: B Type Naturetic Peptide (11/19/2018) + +-------+ + + + | Component | Value | Ref Range | Performed | Pathologist | | | | | At | Signature | + +-------+ + + + | B-Type | 9.5 | 0 - 100 | | | | Naturetic | | | | | | Peptide, | | | | | | External | | | | | + +-------+ + + + + + | Specimen | + + | Blood | + + External Lab: eGFR (11/19/2018) + +-------+ + + + | Component | Value | Ref Range | Performed | Pathologist | | | | | At | Signature | + +-------+ + + + | eGFR, | 53 | | | | | External | | | | | + +-------+ + + + + + | Specimen | + + | Blood | + + External Lab: Creatinine (11/19/2018) + +-------+ + + + | Component | Value | Ref Range | Performed | Pathologist | | | | | At | Signature | + +-------+ + + + | Creatinine, | 1.1 | 0.6 - 1.3 | | | | External | | | | | + +-------+ + + + + + | Specimen | + + | Blood | + + Comprehensive Metabolic Panel (11/18/2018) + +-------+ + + + | Component | Value | Ref Range | Performed | Pathologist | | | | | At | Signature | + +-------+ + + + | Anion Gap | 10 | 3 - 12 mmol/L | | | + +-------+ + + + | BUN/Creatin | 21.2 | | | | | ine Ratio | | | | | + +-------+ + + + + + | Specimen | + + | Blood | + + documented in this encounter Visit Diagnoses Not on filedocumented in this encounter"
--- OUTSIDE RECORDS SUMMARY | ~2019-12-07 | XMS | Encounter Summary ---
Demographics + + + | Address | [address] | | | [place] [address] | + + + | Home Phone [...] Author + + + | Author | [facility] | | | and [place] | + + + | Organization | [facility] | | | and [...] Team Providers + +------+ + | Care Burr Grinder Name | Role | Phone | + +------+ + PCP | Unavailable | + +------+ + Encounter Details +--------+ + + + + | Date | Type | Department | Care Team | Description | +--------+ + + + + | 03/13/ | Hospital | [facility] | | | | 2008 | Encounter | [facility] | | | | | | CENTER [address] | | | | | | [place] | | | | | | [address] | | | | | | [phone] | | | +--------+ + + + + Social History + +-------+ +--------+------+ | Tobacco Use | Types | Packs/Day | Years | Date | | | | | Used | | + +-------+ +--------+------+ | Never Assessed | | | | | + +-------+ +--------+------+ + + + | Sex Assigned at | Date Recorded | | | | + + + | Not on file | | + + + documented as of this encounter Plan of Treatment Not on filedocumented as of this encounter Visit Diagnoses Not on filedocumented in this encounter"
--- OUTSIDE RECORDS SUMMARY | ~2019-12-07 | XMS | Encounter Summary ---
Demographics + + + | Address | [address] | | | [place] [address] | + + + | Home Phone | | + + + | Preferred Language | Unknown | + + + | Marital Status | Single | + + + | Roman Catholic Affiliation | Unknown | + + + | Race | White | + + + | Ethnic Group | Not or | + + + Author + + + | Author | [facility] | | | and [place] | + + + | Organization | [facility] | | | [...] Team Providers + +------+ + | Care Forestry Technical Officer Name | Role | Phone | + +------+ + | Seamus Stokes DO | PCP | | + +------+ + Reason for Visit + + + | Reason | Comments | + + + | Knee Injury | left | + + + Encounter Details +--------+ + + + + | Date | Type | Department | Care Team | Description | +--------+ + + + + | 10/10/ | Emergency | [facility] | Jamison Amaya, | Sprain of left knee, | | 2018 | | [facility] | MD [address] | unspecified | | | | CENTER [address] | [facility] [place] | ligament, initial | | | | [place], [place] | [place] [address] | encounter (Primary | | | | [address] | [phone] | Dx); Foot sprain, | | | | [phone] | | left, initial | | | | | | encounter | +--------+ + + + + Social [...] + + + | Blood Pressure | 227/135 | 10/10/2018 10:18 PM | | | | | PDT | | + + + + + | Pulse | 88 | 10/10/2018 10:43 PM | | | | | PDT | | + + + + + | Temperature | 37.1 C (98.7 F) | 10/10/2018 10:43 PM | | | | | PDT | | + + + + + | Respiratory Rate | 18 | 10/10/2018 10:43 PM | | | | | PDT | | + + + + + | Oxygen Saturation | 98% | 10/10/2018 10:43 PM | | | | | PDT | | + + + + + | Inhaled Oxygen | - | - | | | Concentration | | | | + + + + + | Weight | 227.7 kg (502 lb) | 10/10/2018 10:43 PM | | | | | PDT | | + + + + + | Height | 182.9 cm (6') | 10/10/2018 10:43 PM | | | | | PDT | | + + + + + | Body Mass Index | 68.08 | 10/10/2018 10:43 PM | | | | | PDT | | + + + + + documented in this encounter Discharge Instructions Instructions Jamison Amaya MD - 10/10/2018Ace wrap for compression Ice packs intermittently Crutches Scheduled ibuprofen Follow-up with primary care AttachmentsThe following attachments cannot be sent through Care Everywhere.Foot Sprain (Maurilio fitch)Knee Sprain (Kazakh)documented in this encounter Medications at Time of Discharge + + + +---------+ + + | Medication | Sig | Dispensed | Refills | Start | End Date | | | | | | Date | | + + + +---------+ + + | ondansetron | Take 4 mg by mouth | | 3 | 07/20/19 | | | (ZOFRAN ODT) 4 mg | as needed. | | | 19 | | | disintegrating | | | | | | | tablet | | | | | | + + + +---------+ + + | ibuprofen | Take 1 tablet by | 20 | 0 | 10/11/19 | | | (ADVIL,MOTRIN) 600 | mouth every 6 hours | tablet | | 19 | 9 | | MG tablet | for 5 days. | | | | | + + + +---------+ + + | spironolactone | Take 25 mg by mouth | | 0 | | | | (ALDACTONE) 25 mg | Daily. | | | | 0 | | tablet | | | | | | + + + +---------+ + + documented as of this encounter Laith Nunn RN - 10/10/2018 11:20 PM PDTpt discharged to home with family. Instruct ions given to pt both verbally and in writing. Pt sts understanding of her instructions at time of dc. Laith Jarrell RN - 10/10/2018 10:52 PM PDTPt presentrs co left knee and ankle pain rt a [facility] at [facility]. Pt sts pain with weight bearing. Denies numbness or tingling. Jamison Ramos MD - 10/10/2018 1 0:18 PM PDT [facility] Emergency Department Encounter Note [address] [place] [address] PCP:Seamus Stokes DO CHIEF COMPLAINT Chief Complaint Patient presents with Knee Injury left HPI Carol Jones is a 38 y.o. female who presents to the emergency department with le ft knee pain and left foot pain. This patient was in the kitchen doing some waylon. She s tates she twisted her knee and fell to the ground. She has pain in her left knee and in the left foot. She also stubbed her great toe on the left foot. She came to the ER for evalua tion. No neck or back pain. She did not hit her head. She's had mild knee problems in the past. No surgeries on her knee. PAST MEDICAL HISTORY No past medical history on file. SURGICAL HISTORY No past surgical history on file. 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 ALLERGIES Allergies Allergen Reactions Benadryl Anti-Itch Childrens [Camphor] Anaphylaxis Morphine Anaphylaxis Latex Rash FAMILY HISTORY No family history on file. SOCIAL HISTORY Social History Socioeconomic History Marital status: Single Spouse name: Not on file Number of children: Not on file Years of education: Not on file Highest education level: Not on file REVIEW OF SYSTEMS All systems reviewed and found negative except what is in the HPI PHYSICAL EXAM VITAL SIGNS: There were no vitals taken for this visit. Constitutional: Well developed, morbidly obese, mild acute distress, Non-toxic appearance. HENT: Normocephalic, Atraumatic, Bilateral external ears normal, Mucous membranes are mois t, Nasal mucosa is normal. Eyes: PERRL, Conjunctiva normal, No discharge. Palpebral conjunctiva are pink. Neck: Normal range of motion, No tenderness, Supple, No stridor. Respiratory: No respiratory distress, No wheezing Cardiovascular: Normal heart rate, Normal rhythm Extremities: Warm and well perfused, no edema, no joint swelling or deformity. Limited ra nge of motion left knee due to pain. Tenderness on the dorsal aspect of the left foot witho ut deformity or swelling. There is some dried blood around the tip of the left great toe na il plate. No visible laceration. Back: No CVAT, No tenderness of the thoracic or lumbar spine. Skin: Warm, Dry, No erythema, No induration, No rash. Neurologic: Alert & oriented x 3, No focal motor or sensory deficits. Speech is clear. G ait is antalgic. RADIOLOGY Left knee x-ray: No fractures or dislocations Left foot x-ray: No fractures. DJD noted. No dislocations. ED COURSE & MEDICAL DECISION MAKING Pertinent Labs & Imaging studies reviewed. (See chart for details) The patient was seen and examined shortly after arriving in the emergency department. Hist ory and physical were obtained, vital signs were noted. Due to her morbid obesity the stand anuradha splinting devices would not work. She was placed in an Dimitry wrap for the knee and foot. Crutches are dispensed. Scheduled ibuprofen. Follow up with primary care. FINAL IMPRESSION 1. Sprain of left knee, unspecified ligament, initial encounter 2. Foot sprain, left, initial encounter PLAN Follow-up Information Seamus Stokes DO. Schedule an appointment as soon as possible for a visit in 1 week. Specialty: Internal Medicine Contact information: [address] [facility] [address] Discharge Medication List as of 10/10/2018 23:19 START taking these medications Details ibuprofen (ADVIL,MOTRIN) 600 MG tablet Take 1 tablet by mouth every 6 hours for 5 days.Disp -20 tablet, R-0, Print Jamison Amaya MD 10/11/18 0037 documented in this encounter Plan of Treatment Not on filedocumented as of this encounter Procedures + +--------+ + + + | Procedure Name | Priori | Date/Time | Associated Diagnosis | Comments | | | ty | | | | + +--------+ + + + | XR FOOT LEFT 3 + VW | STAT | 10/10/2018 | | Results for this | | | | 10:29 PM | | procedure are in the | | | | PDT | | results section. | + +--------+ + + + | XR KNEE LEFT 3 VW | STAT | 10/10/2018 | | Results for this | | | | 10:29 PM | | procedure are in the | | | | PDT | | results section. | + +--------+ + + + documented in this encounter Results XR Foot Left 3 + Vw (10/10/2018 10:29 PM PDT) + + | Specimen | + + | | + + + + + | Narrative | Performed At | + + + | EXAM:XR FOOT LEFT 3 + VW CLINICAL HISTORY: left foot pain | [facility] | | COMPARISON: None. FINDINGS: Normal mineralization. No acute | | | fracture. No current dislocation. No bone erosion or destruction. | | | Plantar calcaneal spurring. Achilles insertional enthesopathy. | | | Mild soft tissue edema. There are no radiopaque foreign bodies. | | | IMPRESSION - No acute osseous abnormalities. Dictated and | | | Signed by: Luca Kelsey MD Electronically signed: 10/11/2018 | | | 9:18 AM | | + + + + + | Procedure Note | + + | Dustin, French Results In - 10/11/2018 9:21 AM PDT EXAM:XR FOOT LEFT 3 + VW | | | | CLINICAL HISTORY: left foot pain | | | | COMPARISON: None. | | | | FINDINGS: Normal mineralization. No acute fracture. No current dislocation. | | No bone erosion or destruction. Plantar calcaneal spurring. Achilles | | insertional enthesopathy. Mild soft tissue edema. There are no radiopaque | | foreign bodies. | | | | IMPRESSION - | | | | No acute osseous abnormalities. | | | | Dictated and Signed by: Luca Kelsey MD | | Electronically signed: 10/11/2018 9:18 AM | + + + +---------+ + + | Performing | Address | City/State/Zipcode | Phone Number | | Organization | | | | + +---------+ + + | [facility] | | | | + +---------+ + + XR Knee Left 3 Vw (10/10/2018 10:29 PM PDT) + + | Specimen | + + | | + + + + + | Narrative | Performed At | + + + | EXAM:XR KNEE LEFT 3 VW CLINICAL HISTORY: left knee pain | [facility] | | COMPARISON: None. FINDINGS: 3 nonweightbearing views of the left | | | knee. Normal mineralization. Diffuse mild degenerative changes. | | | No acute fracture. No current dislocation. No bone erosion or | | | destruction. There are joint effusion. There are no radiopaque | | | foreign bodies. IMPRESSION - Mild degenerative changes. | | | Dictated and Signed by: Luca Kelsey MD Electronically signed: | | | 10/11/2018 9:17 AM | | + + + + + | Procedure Note | + + | Dustin, French Results In - 10/11/2018 9:20 AM PDT EXAM:XR KNEE LEFT 3 VW | | | | CLINICAL HISTORY: left knee pain | | | | COMPARISON: None. | | | | FINDINGS: 3 nonweightbearing views of the left knee. Normal mineralization. | | Diffuse mild degenerative changes. No acute fracture. No current dislocation. | | No bone erosion or destruction. There are joint effusion. There are no | | radiopaque foreign bodies. | | | | IMPRESSION - | | | | Mild degenerative changes. | | | | Dictated and Signed by: Luca Kelsey MD | | Electronically signed: 10/11/2018 9:17 AM | + + + +---------+ + + | Performing | Address | City/State/Zipcode | Phone Number | | Organization | | | | + +---------+ + + | [facility] | | | | + +---------+ + + documented in this encounter Visit Diagnoses + + | Diagnosis | + + | Sprain of left knee, unspecified ligament, initial encounter - Primary | + + | Foot sprain, left, initial encounter | + + documented in this encounter Administered Medications + +--------+ +--------+------+------+ | Medication Order | MAR | Action | Dose | Rate | Site | | | Action | Date | | | | + +--------+ +--------+------+------+ | ibuprofen (ADVIL,MOTRIN) tablet | Given | 10/11/19 | 600 mg | | | | 600 mg 600 mg, Oral, ONCE, Sun | | 19 11:15 | | | | | 19 at 2300, For 1 dose, Give | | PM PDT | | | | | with food., | | | | | | + +--------+ +--------+------+------+ +---+---+ | | | +---+---+ documented in this encounter"
--- OUTSIDE RECORDS SUMMARY | ~2019-12-07 | XMS | Encounter Summary ---
Demographics + + + | Address | [address] | | | [place] [address] | + + + | Home Phone | | + + + | Preferred Language | Unknown | + + + | Marital Status | Single | + + + | Gnosticism Affiliation | Unknown | + + + [...] Team Providers + +------+ + | Care Mower Sharpener Name | Role | Phone | + +------+ + | Seamus Stokes DO | PCP | | + +------+ + Encounter Details +--------+ + + + + | Date | Type | Department | Care Team | Description | +--------+ + + + + | 04/12/ | Abstract | [facility] [place] | Lauri Webb | | | 2019 | | CARDIOLOGY [address] | [address] | | | | | [address] [place], | [address] [place] | | | | | [place] [address] | [place] [address] | | | | | [phone] | [phone] | | | | | | | [...]
--- OUTSIDE RECORDS SUMMARY | ~2019-12-07 | XMS | Encounter Summary ---
Demographics + + + | Address | [address] | | | [place] [address] | + + + | Home Phone | | + + + | Preferred Language | Unknown | + + + | Marital Status | Single | + + + | Islam Affiliation | Unknown | + + + [...] | + + +---------+ + | Jarett Bonilla | ECON | Unknown | | + + +---------+ + Care Team Providers + +------+ + | Care Grader [employer] Name | Role | Phone | + +------+ + | Seamus Stokes DO | PCP | | + +------+ + Reason for Visit + + + | Reason | Comments | + + + | Hypertension | | + + + | Shortness of Breath | | + + + Encounter Details +--------+ + + + + | Date | Type | Department | Care Team | Description | +--------+ + + + + | 11/12/ | Emergency | [facility] | Rashid Owen MD | Hypertension, | | 2019 | | [facility] | [address] | unspecified type | | | | CENTER [address] | [place] | (Primary Dx); | | | | [place], [place] | [phone] | Asthma, unspecified | | | | [address] | | asthma severity, | | | | [phone] | | unspecified whether | | | | | | complicated, | | | | | | unspecified whether | | | | | | persistent | +--------+ + + + + Social [...] + + + | Blood Pressure | 170/78 | 11/12/2018 2:45 PM | | | | | PDT | | + + + + + | Pulse | 83 | 11/12/2018 2:45 PM | | | | | PDT | | + + + + + | Temperature | 38.2 C (100.7 F) | 11/12/2018 10:55 AM | | | | | PDT | | + + + + + | Respiratory Rate | 17 | 11/12/2018 2:45 PM | | | | | PDT | | + + + + + | Oxygen Saturation | 100% | 11/12/2018 2:45 PM | | | | | PDT | | + + + + + | Inhaled Oxygen | - | - | | | Concentration | | | | + + + + + | Weight | 230.9 kg (509 lb) | 11/12/2018 10:55 AM | | | | | PDT | | + + + + + | Height | 182.9 cm (6') | 11/12/2018 10:55 AM | | | | | PDT | | + + + + + | Body Mass Index | 69.03 | 11/12/2018 10:55 AM | | | | | PDT | | + + + + + documented in this encounter Discharge Instructions Instructions Rashid Owen MD - 11/12/2018Return for any worsening symptoms, fevers, chills , nausea vomiting, chest pain, sudden onset headache or any strokelike symptoms. Follow-up with your primary care provider. Continue keeping a diary of your blood pressures. AttachmentsThe following attachments cannot be sent through Care Everywhere.Asthma, Underst anding (Amharic)Hypertension, Established (Amharic)documented in this encounter Medications at Time of Discharge + + + +---------+ + + | Medication | Sig | Dispensed | Refills | Start | End Date | | | | | | Date | | + + + +---------+ + + | albuterol 90 | Inhale 2 puffs into | 1 | 0 | 11/13/19 | | | mcg/puff inhaler | the lungs every 6 | Inhaler | | 19 | | | | hours as needed for | | | | | | | Wheezing. | | | | | + + + +---------+ + + | diclofenac | Apply 2 g topically | | 3 | 10/13/19 | | | (VOLTAREN) 1% GEL | as needed. | | | 19 | | + + + +---------+ + + | ondansetron | Take 4 mg by mouth | | 3 | 07/20/19 | | | (ZOFRAN ODT) 4 mg | as needed. | | | 19 | | | disintegrating | | | | | | | tablet | | | | | | + + + +---------+ + + | SUMAtriptan | Take 25 mg by mouth | | 1 | 11/04/19 | | | (IMITREX) 25 mg | as needed. | | | 19 | | | tablet | | | | | | + + + +---------+ + + | spironolactone | Take 25 mg by mouth | | 0 | | | | (ALDACTONE) 25 mg | Daily. | | | | 0 | | tablet | | | | | | + + + +---------+ + + documented as of this encounter ED Notes Ryland Steele RN - 11/12/2018 11:[address] Diaz office for elevated BP , patient also visibly SOB on arrival, states her BP is usually around 130 systolic. Denies feeling lightheaded or dizzy but states she recently had a sinus infection. Electronically s igned by Ryland Steele RN at 11/12/2018 11:09 AM Rashid Bravo MD - 11/12/2018 11:03 A M PDT [facility] Jones Emergency Department Encounter Note [address] [place] [id number] PCP:Seamus Stokes DO [phone] CHIEF COMPLAINT: Chief Complaint Patient presents with Hypertension Shortness of Breath ED Room: ED14/ED14 HPI Carol Jones is a 38 y.o. female who presents to the Emergency Department for hypertensi on from the primary care provider. She was found to have blood pressure in the 220s at the primary care provider. Normal blood pressures usually in the 140s. Patient reports that e is dealing with a sinus infection. At time of examination she denied any headache, blurre d vision, double vision. Ambulating with no difficulty. She did complain of being short of breath. Has history of asthma but does not use an inhaler as she thinks it predispose her to infections. PAST MEDICAL & SURGICAL HISTORY Past Medical History: Diagnosis Date Asthma History reviewed. No pertinent surgical history. CURRENT MEDICATIONS [employer] Home Medications Medication Sig spironolactone (ALDACTONE) 25 mg tablet Take 25 mg by mouth Daily. ALLERGIES Allergies Allergen Reactions Benadryl Anti-Itch Childrens [Camphor] Anaphylaxis Morphine Anaphylaxis Latex Rash FAMILY AND SOCIAL HISTORY History reviewed. No pertinent family history. Social History Socioeconomic History Marital status: Single Spouse name: Not on file Number of children: Not on file Years of education: Not on file Highest education level: Not on file Tobacco Use Smoking status: Never Smoker Smokeless tobacco: Never Used Substance and Sexual Activity Alcohol use: Yes REVIEW OF SYSTEMS As in history of present illness. A 10 system review was otherwise negative. PHYSICAL EXAM VITAL SIGNS: (first vital signs):Temp: (!) 38.2 C (100.7 F) Pulse: 88 Resp: 24 SpO2: 96 % BP: (!) 226/120 Body mass index is 69.03 kg/m. Constitutional: female patient, pleasant female in no acute distress sitting comfortably HEENT: Atraumatic, PERRL, Oropharynx benign. Frontal sinus pressure Neck: Supple with full range of motion. Respiratory: Good air movement bilaterally. Cardiovascular: Normal S1 S2 Abdomen: Soft, nontender, nondistended Extremities: Nontender. Skin: Warm, Dry, No rashes Neurologic: Alert & oriented. Psychiatric: Normal mood, affect and judgement. EKG 12-lead EKG shows ST elevation or arrhythmia LABS Results for orders placed or performed during the hospital encounter of 11/12/18 CBC with Differential Result Value Ref Range WBC 10.2 4.0 - 11.0 K/uL RBC 5.16 3.70 - 5.20 M/uL Hemoglobin 13.3 11.5 - 16.0 g/dL Hematocrit 41.6 34.0 - 47.0 % MCV 80.6 (L) 83.0 - 101.0 fL MCH 25.8 (L) 28.0 - 35.0 pg MCHC 32.0 32.0 - 36.0 g/dL RDW-CV 14.1 <15.0 % RDW-SD 40.8 35.1 - 46.3 fL Platelet Count 261 140 - 440 K/uL MPV 12.3 6.5 - 12.4 fL % Neutrophils 73.3 45.0 - 82.0 % % Lymphocytes 17.3 (L) 20.0 - 45.0 % % Monocytes 7.0 4.0 - 12.0 % % Eosinophils 1.5 0.0 - 5.0 % % Basophils 0.6 0.0 - 1.0 % % Immature Granulocytes 0.3 0.0 - 0.4 % Absolute Neutrophils 7.49 1.80 - 8.50 K/uL Absolute Lymphocytes 1.77 0.60 - 3.20 K/uL Absolute Monocytes 0.71 0.00 - 1.00 K/uL Absolute Eosinophils 0.15 0.00 - 0.40 K/uL Absolute Basophils 0.06 0.00 - 0.10 K/uL Absolute Immature Granulocytes 0.03 0.00 - 0.03 K/uL % nRBC 0 0 - 2 per 100 WBCs Absolute nRBC 0.00 0.00 - 0.01 K/uL Comprehensive Metabolic Panel Result Value Ref Range Na 140 136 - 145 mmol/L K 3.2 (L) 3.4 - 5.1 mmol/L Cl 104 98 - 107 mmol/L CO2 25 20 - 31 mmol/L Anion Gap 11 3 - 16 mmol/L Glucose 105 60 - 106 mg/dL BUN 14 9 - 23 mg/dL Creatinine 1.04 (H) 0.55 - 1.02 mg/dL eGFR if not 59 (L) >=60 mL/min/1.73m2 Calcium 9.7 8.7 - 10.4 mg/dL Albumin 4.4 3.2 - 4.8 g/dL Bilirubin Total 0.5 0.3 - 1.2 mg/dL Total Protein 6.9 5.7 - 8.2 g/dL AST 23 0 - 34 U/L ALT 34 10 - 49 U/L Alkaline Phosphatase 73 46 - 116 U/L Globulin 2.5 2.1 - 3.8 g/dL Albumin/Globulin Ratio 1.8 0.8 - 1.9 BUN/Creatinine Ratio 13.5 Troponin I Result Value Ref Range Troponin I 0.03 <0.06 ng/mL B Type Natriuretic Peptide Result Value Ref Range BNP 81 <100 pg/mL Extra Blue Top Tube Result Value Ref Range Extra Blue Top Tube Done D-Dimer Result Value Ref Range D-Dimer Quantitative 0.33 <=0.50 ug/mL FEU ECG 12 lead Result Value Ref Range INTERPRETATION TEXT Not Confirmed IMAGING STUDIES (X-Rays interpreted by ED Physician) CLINICAL INFORMATION: HYPERTENSION SHORTNESS OF BREATH. COMPARISON: None available. FINDINGS: Frontal and lateral views of the chest. Lungs: No focal airspace disease, pleural effusion, or pneumothorax. Heart/mediastinum: Cardiac silhouette is of normal size. Central pulmonary vasculature has a normal appearance. Bones: No acute osseous abnormality appreciated. Inferior subluxation of the right humeral head. IMPRESSION - No acute cardiopulmonary disease. Inferior subluxation of the right humeral head. Dictated and Signed by: Dio Gilman MD Electronically signed: 11/12/2018 12:28 PM ED COURSE & MEDICAL DECISION MAKING Pertinent Labs & Imaging studies were reviewed along with EMS notes and long-term record s if applicable. (See chart for details) Medications and Allergy list reviewed. Nurses note and old records were reviewed The patient was seen and examined, 38-year-old female who presents with hypertension from the clinic. On arrival her blood pr essure was 220s. She was in respiratory distress so she was given an albuterol treatment pr eceded by Abhishek. Respirations improve her blood pressure did not improve. She was given h er 5 mg of amlodipine. She was observed for an hour and blood pressures did start trending down with 5 mg of amlodipine. At time of discharge her blood pressure was 170/78. She was asymptomatic from a high blood pressure. I asked her to return immediately if she develop a ny sudden onset headache. She states she does have a family history of brain aneurysms. Lore echevarria was febrile when she arrived but she is currently being treated for sinus infection with s ome antibiotics. No other systemic symptoms. She will be given an albuterol inhaler. She has history of multiple allergies and thinks they flareup around this time. Last Set of Vital Signs: Temp: (!) 38.2 C (100.7 F) Pulse: 83 Resp: 17 SpO2: 100 % BP: 170/78 FINAL IMPRESSION ICD-10-CM ICD-9-CM 1. Hypertension, unspecified typeAcute I10 401.9 2. Asthma, unspecified asthma severity, unspecified whether complicated, unspecified whethe r persistent J45.909 493.90 Follow-up Information Schedule an appointment as soon as possible for a visit with Seamus Stokes DO. Specialty: Internal Medicine Contact information: [address] [facility] [address] [facility]. Specialty: Emergency Medicine Why: If symptoms worsen Contact information: [address] [facility] [address] Discharge Medication List as of 11/12/2018 14:53 START taking these medications Details albuterol 90 mcg/puff inhaler Inhale 2 puffs into the lungs every 6 hours as needed for Whe ezing.Disp-1 Inhaler, R-0, Normal Rashid Owen MD 11/13/18 0836 documented in this encou nter Plan of Treatment Not on filedocumented as of this encounter Procedures + +--------+ + + + | Procedure Name | Priori | Date/Time | Associated Diagnosis | Comments | | | ty | | | | + +--------+ + + + | XR CHEST PA AND | STAT | 11/12/2018 | | Results for this | | LATERAL | | 12:00 PM | | procedure are in the | | | | PDT | | results section. | + +--------+ + + + | EXTRA BLUE TOP TUBE | Routin | 11/12/2018 | | Results for this | | | e | 11:32 AM | | procedure are in the | | | | PDT | | results section. | + +--------+ + + + | TROPONIN I | STAT | 11/12/2018 | | Results for this | | | | 11:32 AM | | procedure are in the | | | | PDT | | results section. | + +--------+ + + + | D-DIMER | Add-On | 11/12/2018 | | Results for this | | | | 11:32 AM | | procedure are in the | | | | PDT | | results section. | + +--------+ + + + | CBC WITH | STAT | 11/12/2018 | | Results for this | | DIFFERENTIAL | | 11:32 AM | | procedure are in the | | | | PDT | | results section. | + +--------+ + + + | B TYPE NATRIURETIC | STAT | 11/12/2018 | | Results for this | | PEPTIDE | | 11:32 AM | | procedure are in the | | | | PDT | | results section. | + +--------+ + + + | COMPREHENSIVE | STAT | 11/12/2018 | | Results for this | | METABOLIC PANEL | | 11:32 AM | | procedure are in the | | | | PDT | | results section. | + +--------+ + + + | ECG 12 LEAD | STAT | 11/12/2018 | | Results for this | | | | 11:19 AM | | procedure are in the | | | | PDT | | results section. | + +--------+ + + + documented in this encounter Results XR Chest PA and Lateral (11/12/2018 12:00 PM PDT) + + | Specimen | + + | | + + + + + | Narrative | Performed At | + + + | CLINICAL INFORMATION: HYPERTENSION SHORTNESS OF BREATH. | [facility] | | COMPARISON: None available. FINDINGS: Frontal and lateral views | | | of the chest. Lungs: No focal airspace disease, pleural effusion, | | | or pneumothorax. Heart/mediastinum: Cardiac silhouette is of | | | normal size. Central pulmonary vasculature has a normal appearance. | | | Bones: No acute osseous abnormality appreciated. Inferior | | | subluxation of the right humeral head. IMPRESSION - No acute | | | cardiopulmonary disease. Inferior subluxation of the right | | | humeral head. Dictated and Signed by: Dio Gilman MD | | | Electronically signed: 11/12/2018 12:28 PM | | + + + + + | Procedure Note | + + | French Chan Results In - 11/12/2018 12:31 PM PDT CLINICAL INFORMATION: HYPERTENSION | | SHORTNESS OF BREATH. | | | | COMPARISON: None available. | | | | FINDINGS: | | Frontal and lateral views of the chest. | | | | Lungs: No focal airspace disease, pleural effusion, or pneumothorax. | | | | Heart/mediastinum: Cardiac silhouette is of normal size. Central pulmonary | | vasculature has a normal appearance. | | | | Bones: No acute osseous abnormality appreciated. Inferior subluxation of the | | right humeral head. | | | | IMPRESSION - | | | | No acute cardiopulmonary disease. | | | | Inferior subluxation of the right humeral head. | | | | Dictated and Signed by: Dio Gilman MD | | Electronically signed: 11/12/2018 12:28 PM | + + + +---------+ + + | Performing | Address | City/State/Zipcode | Phone Number | | Organization | | | | + +---------+ + + | [facility] | | | | + +---------+ + + D-Dimer (11/12/2018 11:32 AM PDT) + + + + + + | Component | Value | Ref Range | Performed | Pathologist | | | | | At | Signature | + + + + + + | D-Dimer | 0.33Comment: This | <=0.50 ug/mL | [facility] | | | Quantitativ | quantitative D-Dimer | FEU | [facility] | | | e | assay has been evaluated | | MEDICAL | | | | for screening for | | CENTER - | | | | venous thrombotic | | LABORATORY | | | | disease, and may be | | | | | | useful in ruling out, | | | | | | but not ruling in | | | | | | disease. Values less | | | | | | than 0.50 ug/mL FEU | | | | | | (Fibrinogen Equivalent | | | | | | Units) have a negative | | | | | | predictive value of | | | | | | approximately 95% for | | | | | | ruling out large | | | | | | pulmonary emboli or | | | | | | proximal deep vein | | | | | | thrombosis. Distal DVT | | | | | | are not excluded. An | | | | | | elevated D-dimer can be | | | | | | present in patients with | | | | | | liver disease, | | | | | | , eclampsia, | | | | | | heart disease and some | | | | | | cancers among other | | | | | | conditions. The presence | | | | | | of rheumatoid factor at | | | | | | a level >50 IU/mL may | | | | | | falsely elevate the | | | | | | determined D-dimer | | | | | | levels. | | | | + + + + + + + + | Specimen | + + | Blood | + + + + + + + | Performing | Address | City/State/Zipcode | Phone Number | | Organization | | | | + + + + + | [facility] | [address] | [place] | [phone] | | [facility] | | [address] | | | - LABORATORY | | | | + + + + + Extra Blue Top Tube (11/12/2018 11:32 AM PDT) + +-------+ + + + | Component | Value | Ref Range | Performed | Pathologist | | | | | At | Signature | + +-------+ + + + | Extra Blue | Done | | [facility] | | | Top Tube | | | [facility] | | | | | | MEDICAL | | | | | | CENTER - | | | | | | LABORATORY | | + +-------+ + + + + + | Specimen | + + | Blood | + + + + + + + | Performing | Address | City/State/Zipcode | Phone Number | | Organization | | | | + + + + + | [facility] | [address] | [place] | [phone] | | [facility] | | [address] | | | - LABORATORY | | | | + + + + + B Type Natriuretic Peptide (11/12/2018 11:32 AM PDT) + +-------+ + + + | Component | Value | Ref Range | Performed | Pathologist | | | | | At | Signature | + +-------+ + + + | BNP | 81 | <100 pg/mL | [facility] | | | | | | [facility] | | | | | | MEDICAL | | | | | | CENTER - | | | | | | LABORATORY | | + +-------+ + + + + + | Specimen | + + | Blood | + + + + + + + | Performing | Address | City/State/Zipcode | Phone Number | | Organization | | | | + + + + + | [facility] | [address] | [place] | [phone] | | [facility] | | [address] | | | - LABORATORY | | | | + + + + + Troponin I (11/12/2018 11:32 AM PDT) + + + + + + | Component | Value | Ref Range | Performed | Pathologist | | | | | At | Signature | + + + + + + | Troponin I | 0.03Comment: | <0.06 ng/mL | [facility] | | | | Comment:Reference | | [facility] | | | | Ranges: 0.00-0.06 = | | MEDICAL | | | | NORMAL >0.06 = | | CENTER - | | | | SUSPICIOUS FOR | | LABORATORY | | | | MYOCARDIAL DAMAGE NOTE: | | | | | | Values greater than | | | | | | 0.78 ng/mL have been | | | | | | shown to be strongly | | | | | | associated with acute | | | | | | myocardial infarction. | | | | | | The [employer] [place] [employer] | | | | | | Cardiology (ACC) | | | | | | recommends a decision | | | | | | limit of 0.06 ng/mL for | | | | | | this assay. Results | | | | | | greater than 0.06 can | | | | | | reflect a pre-infarct | | | | | | acute coronary syndrome, | | | | | | but can also reflect | | | | | | myocardial necrosis or | | | | | | injury that is not due | | | | | | to coronary artery | | | | | | disease. Some of these | | | | | | causes are sepsis, | | | | | | hypocolemia, atrial | | | | | | fibrillation, heart | | | | | | failure, pulmonary | | | | | | embolism, myocarditis, | | | | | | myocardial contusion, | | | | | | and renal failure. The | | | | | | diagnosis of myocardial | | | | | | infarction should be | | | | | | based on a combination | | | | | | of the patient's | | | | | | clinical presentation | | | | | | and the clinical | | | | | | laboratory test results | | | | | | (especially serial | | | | | | troponin levels). | | | | + + + + + + + + | Specimen | + + | Blood | + + + + + + + | Performing | Address | City/State/Zipcode | Phone Number | | Organization | | | | + + + + + | [facility] | [address] | [place] | [phone] | | [facility] | | [address] | | | - LABORATORY | | | | + + + + + Comprehensive Metabolic Panel (11/12/2018 11:32 AM PDT) + + + + + + | Component | Value | Ref Range | Performed | Pathologist | | | | | At | Signature | + + + + + + | Na | 140 | 136 - 145 | [facility] | | | | | mmol/L | [facility] | | | | | | MEDICAL | | | | | | CENTER - | | | | | | LABORATORY | | + + + + + + | K | 3.2 (L) | 3.4 - 5.1 | [facility] | | | | | mmol/L | [facility] | | | | | | MEDICAL | | | | | | CENTER - | | | | | | LABORATORY | | + + + + + + | Cl | 104 | 98 - 107 mmol/L | [facility] | | | | | | [facility] | | | | | | MEDICAL | | | | | | CENTER - | | | | | | LABORATORY | | + + + + + + | CO2 | 25 | 20 - 31 mmol/L | [facility] | | | | | | [facility] | | | | | | MEDICAL | | | | | | CENTER - | | | | | | LABORATORY | | + + + + + + | Anion Gap | 11 | 3 - 16 mmol/L | [facility] | | | | | | [facility] | | | | | | MEDICAL | | | | | | CENTER - | | | | | | LABORATORY | | + + + + + + | Glucose | 105 | 60 - 106 mg/dL | [facility] | | | | | | [facility] | | | | | | MEDICAL | | | | | | CENTER - | | | | | | LABORATORY | | + + + + + + | BUN | 14 | 9 - 23 mg/dL | [facility] | | | | | | [facility] | | | | | | MEDICAL | | | | | | CENTER - | | | | | | LABORATORY | | + + + + + + | Creatinine | 1.04 (H) | 0.55 - 1.02 | [facility] | | | | | mg/dL | [facility] | | | | | | MEDICAL | | | | | | CENTER - | | | | | | LABORATORY | | + + + + + + | eGFR, | 59 (L)Comment: | >=60 | [facility] | | | non- | GLOMERULAR FILTRATION | mL/min/1.73m2 | [facility] | | | [place] | RATE,ESTIMATED | | MEDICAL | | | | mL/min/1.57q9Yyba than | | CENTER - | | | | 60 Chronic kidney | | LABORATORY | | | | disease,if found over a | | | | | | 3-month period.Less than | | | | | | 15 Kidney failureFor | | | | | | | | | | | | Americans,multiply the | | | | | | calculated GFR by 1.21. | | | | | | | | | | + + + + + + | Calcium | 9.7 | 8.7 - 10.4 | [facility] | | | | | mg/dL | [facility] | | | | | | MEDICAL | | | | | | CENTER - | | | | | | LABORATORY | | + + + + + + | Albumin | 4.4 | 3.2 - 4.8 g/dL | [facility] | | | | | | [facility] | | | | | | MEDICAL | | | | | | CENTER - | | | | | | LABORATORY | | + + + + + + | Bilirubin | 0.5 | 0.3 - 1.2 mg/dL | [facility] | | | Total | | | [facility] | | | | | | MEDICAL | | | | | | CENTER - | | | | | | LABORATORY | | + + + + + + | Total | 6.9 | 5.7 - 8.2 g/dL | [facility] | | | Protein | | | [facility] | | | | | | MEDICAL | | | | | | CENTER - | | | | | | LABORATORY | | + + + + + + | AST | 23 | 0 - 34 U/L | [facility] | | | | | | [facility] | | | | | | MEDICAL | | | | | | CENTER - | | | | | | LABORATORY | | + + + + + + | ALT | 34 | 10 - 49 U/L | [facility] | | | | | | [facility] | | | | | | MEDICAL | | | | | | CENTER - | | | | | | LABORATORY | | + + + + + + | Alkaline | 73 | 46 - 116 U/L | [facility] | | | Phosphatase | | | [facility] | | | | | | MEDICAL | | | | | | CENTER - | | | | | | LABORATORY | | + + + + + + | Globulin | 2.5 | 2.1 - 3.8 g/dL | [facility] | | | | | | [facility] | | | | | | MEDICAL | | | | | | CENTER - | | | | | | LABORATORY | | + + + + + + | Albumin/Marta | 1.8 | 0.8 - 1.9 | [facility] | | | bulin Ratio | | | [facility] | | | | | | MEDICAL | | | | | | CENTER - | | | | | | LABORATORY | | + + + + + + | BUN/Creatin | 13.5 | | [facility] | | | ine Ratio | | | [facility] | | | | | | MEDICAL | | | | | | CENTER - | | | | | | LABORATORY | | + + + + + + + + | Specimen | + + | Blood | + + + + + + + | Performing | Address | City/State/Zipcode | Phone Number | | Organization | | | | + + + + + | [facility] | [address] | [place] | [phone] | | [facility] | | [address] | | | - LABORATORY | | | | + + + + + CBC with Differential (11/12/2018 11:32 AM PDT) + + + + + + | Component | Value | Ref Range | Performed | Pathologist | | | | | At | Signature | + + + + + + | White Blood | 10.2 | 4.0 - 11.0 K/uL | [facility] | | | Cells | | | [facility] | | | | | | MEDICAL | | | | | | CENTER - | | | | | | LABORATORY | | + + + + + + | Red Blood | 5.16 | 3.70 - 5.20 | [facility] | | | Cells | | M/uL | [facility] | | | [facility] | | MEDICAL | | | | | | CENTER - | | | | | | LABORATORY | | + + + + + + | Hemoglobin | 13.3 | 11.5 - 16.0 | [facility] | | | | | g/dL | [facility] | | | | | | MEDICAL | | | | | | CENTER - | | | | | | LABORATORY | | + + + + + + | Hematocrit | 41.6 | 34.0 - 47.0 % | [facility] | | | | | | [facility] | | | | | | MEDICAL | | | | | | CENTER - | | | | | | LABORATORY | | + + + + + + | MCV | 80.6 (L) | 83.0 - 101.0 fL | [facility] | | | | | | [facility] | | | | | | MEDICAL | | | | | | CENTER - | | | | | | LABORATORY | | + + + + + + | MCH | 25.8 (L) | 28.0 - 35.0 pg | [facility] | | | | | | [facility] | | | | | | MEDICAL | | | | | | CENTER - | | | | | | LABORATORY | | + + + + + + | MCHC | 32.0 | 32.0 - 36.0 | [facility] | | | | | g/dL | [facility] | | | | | | MEDICAL | | | | | | CENTER - | | | | | | LABORATORY | | + + + + + + | RDW-CV | 14.1 | <15.0 % | [facility] | | | | | | [facility] | | | | | | MEDICAL | | | | | | CENTER - | | | | | | LABORATORY | | + + + + + + | RDW-SD | 40.8 | 35.1 - 46.3 fL | [facility] | | | | | | [facility] | | | | | | MEDICAL | | | | | | CENTER - | | | | | | LABORATORY | | + + + + + + | Platelet | 261 | 140 - 440 K/uL | [facility] | | | Count | | | [facility] | | | | | | MEDICAL | | | | | | CENTER - | | | | | | LABORATORY | | + + + + + + | MPV | 12.3 | 6.5 - 12.4 fL | [facility] | | | | | | [facility] | | | | | | MEDICAL | | | | | | CENTER - | | | | | | LABORATORY | | + + + + + + | % | 73.3 | 45.0 - 82.0 % | [facility] | | | Neutrophils | | | [facility] | | | | | | MEDICAL | | | | | | CENTER - | | | | | | LABORATORY | | + + + + + + | % | 17.3 (L) | 20.0 - 45.0 % | [facility] | | | Lymphocytes | | | [facility] | | | | | | MEDICAL | | | | | | CENTER - | | | | | | LABORATORY | | + + + + + + | % Monocytes | 7.0 | 4.0 - 12.0 % | [facility] | | | | | | [facility] | | | | | | MEDICAL | | | | | | CENTER - | | | | | | LABORATORY | | + + + + + + | % | 1.5 | 0.0 - 5.0 % | [facility] | | | Eosinophils | | | [facility] | | | | | | MEDICAL | | | | | | CENTER - | | | | | | LABORATORY | | + + + + + + | % Basophils | 0.6 | 0.0 - 1.0 % | [facility] | | | | | | [facility] | | | | | | MEDICAL | | | | | | CENTER - | | | | | | LABORATORY | | + + + + + + | % Immature | 0.3Comment: For | 0.0 - 0.4 % | [facility] | | | Granulocyte | patients, use the | | [facility] | | | s | special reference ranges | | MEDICAL | | | | listed below. | | CENTER - | | | | | | LABORATORY | | + + + + + + | Absolute | 7.49 | 1.80 - 8.50 | [facility] | | | Neutrophils | | K/uL | [facility] | | | | | | MEDICAL | | | | | | CENTER - | | | | | | LABORATORY | | + + + + + + | Absolute | 1.77 | 0.60 - 3.20 | [facility] | | | Lymphocytes | | K/uL | [facility] | | | | | | MEDICAL | | | | | | CENTER - | | | | | | LABORATORY | | + + + + + + | Absolute | 0.71 | 0.00 - 1.00 | [facility] | | | Monocytes | | K/uL | [facility] | | | | | | MEDICAL | | | | | | CENTER - | | | | | | LABORATORY | | + + + + + + | Absolute | 0.15 | 0.00 - 0.40 | [facility] | | | Eosinophils | | K/uL | [facility] | | | | | | MEDICAL | | | | | | CENTER - | | | | | | LABORATORY | | + + + + + + | Absolute | 0.06 | 0.00 - 0.10 | [facility] | | | Basophils | | K/uL | [facility] | | | | | | MEDICAL | | | | | | CENTER - | | | | | | LABORATORY | | + + + + + + | Absolute | 0.03Comment: For | 0.00 - 0.03 | [facility] | | | Immature | patients, use | K/uL | [facility] | | | Granulocyte | the special reference | | MEDICAL | | | s | ranges listed below. | | CENTER - | | | | | | LABORATORY | | + + + + + + | % nRBC | 0 | 0 - 2 per 100 | [facility] | | | | | WBCs | [facility] | | | | | | MEDICAL | | | | | | CENTER - | | | | | | LABORATORY | | + + + + + + | Absolute | 0.00 | 0.00 - 0.01 | [facility] | | | nRBC | | K/uL | [facility] | | | | | | MEDICAL | | | | | | CENTER - | | | | | | LABORATORY | | + + + + + + + + | Specimen | + + | Blood | + + + + + | Narrative | Performed At | + + + | IMMATURE GRANULOCYTES - For patients, use the following | [facility] | | reference ranges: Trim. Absolute (K/uL) Percentage (%) | [facility] | | 1st 0.003-0.091 K/uL 0.0-0.9% 2nd 0.007-0.247 K/uL | [facility] | | 0.1-2.0% 3rd 0.018-0.456 K/uL 0.1-2.0% | - LABORATORY | + + + + + + + + | Performing | Address | City/State/Zipcode | Phone Number | | Organization | | | | + + + + + | [facility] | [address] | [place] | [phone] | | [facility] | | [address] | | | - LABORATORY | | | | + + + + + ECG 12 lead (11/12/2018 11:19 AM PDT) + + + + + + | Component | Value | Ref Range | Performed | Pathologist | | | | | At | Signature | + + + + + + | VENTRICULAR | 80 | BPM | [facility] | | | RATE EKG | | | | | + + + + + + | ATRIAL RATE | 80 | BPM | [facility] | | + + + + + + | P-R | 178 | ms | [facility] | | | INTERVAL | | | | | + + + + + + | QRS | 96 | ms | [facility] | | | DURATION | | | | | + + + + + + | Q-T | 386 | ms | [facility] | | | INTERVAL | | | | | + + + + + + | Q-T | 445 | ms | [facility] | | | INTERVAL | | | | | | (CORRECTED) | | | | | + + + + + + | P WAVE AXIS | -2 | degrees | [facility] | | + + + + + + | QRS AXIS | -21 | degrees | [facility] | | + + + + + + | T AXIS | 33 | degrees | [facility] | | + + + + + + | INTERPRETAT | Normal sinus | | [facility] | | | ION TEXT | rhythmModerate voltage | | | | | | criteria for LVH, may be | | | | | | normal | | | | | | variantBorderline ECGNo | | | | | | previous ECGs | | | | | | availableConfirmed by | | | | | | CHINMAY NIEVES MD ([id number]) | | | | | | on 11/13/2018 9:38:27 AM | | | | + + + [...] + | Diagnosis | + + | Hypertension, unspecified type - Primary | + + | Asthma, unspecified asthma severity, unspecified whether complicated, unspecified | | whether persistent | + + documented in this encounter Administered Medications + +--------+ +-------+------+------+ | Medication Order | MAR | Action | Dose | Rate | Site | | | Action | Date | | | | + +--------+ +-------+------+------+ | albuterol 5 mg/mL concentrated | Given | 11/13/19 | 10 mg | | | | nebulizer solution 10 mg 10 mg, | | 19 12:47 | | | | | Nebulization, RT Once, Fri | | PM PDT | | | | | 11/12/18 at 1235, For 1 dose, RT | | | | | | | will administer., | | | | | | + +--------+ +-------+------+------+ +---+---+ | | | +---+---+ + +-------+ +-------+---+---+ | albuterol-ipratropium 2.5-0.5 | Given | 11/13/19 | 3 mLs | | | | mg/3 mL nebulizer solution 3 mL | | 19 12:22 | | | | | 3 mL, Nebulization, RT Once, Fri | | PM PDT | | | | | 11/12/18 at 1200, For 1 dose | | | | | | + +-------+ +-------+---+---+ +---+---+ | | | +---+---+ + +-------+ +------+---+---+ | amLODIPine (NORVASC) tablet 5 | Given | 11/13/19 | 5 mg | | | | mg 5 mg, Oral, ONCE, 11/12/18 | | 19 12:16 | | | | | at 1220, For 1 dose | | PM PDT | | | | + +-------+ +------+---+---+ +---+---+ | | | +---+---+ documented in this encounter"
--- OUTSIDE RECORDS SUMMARY | ~2019-12-07 | XMS | Encounter Summary ---
Demographics + + + | Address | [address] | | | [place] [address] | + + + | Home Phone | | + + + | Preferred Language | Unknown | + + + | Marital Status | Single | + + + | Mu-Ism Affiliation | Unknown | + + + | Race | White | + + + | Ethnic Group | Not or | + + + Author + + + | Author | [facility] | | | and [place] | + + + | Organization | [facility] | | [...] Team Providers + +------+ + | Care Bottled Beverage Inspector Name | Role | Phone | + +------+ + | Chaitanya Khanna MD | PCP | | + +------+ + Encounter Details +--------+ + + + + | Date | Type | Department | Care Team | Description | +--------+ + + + + | 02/14/ | Hospital | [facility] | Chaitanya Khanna | Hypertension | | 2013 | Encounter | [facility] | MD [address] | | | | | MEDICINE [address] | [place] | | | | | [place], | [place] [address] | | | | | [place] [address] | [phone] | | | | | [phone] | | | +--------+ + + + [...] + + documented as of this encounter Procedure Magda MCFARLANE - 04/04/2014 12:00 AM PST documented in this encounter Plan of Treatment + +------+--------+ + + | Name | Type | Priori | Associated Diagnoses | Order Schedule | | | | ty | | | + +------+--------+ + + | 24 hour blood | ECG | Routin | Hypertension | 1 Occurrences | | pressure monitor | | e | | starting 02/14/2014 | + +------+--------+ + + documented as of this encounter Visit Diagnoses + + | Diagnosis | + + | Hypertension Unspecified essential hypertension | + + documented in this encounter"
--- OUTSIDE RECORDS SUMMARY | ~2019-12-07 | XMS | Encounter Summary ---
Demographics + + + | Address | [address] | | | [place] [address] | + + + | Home Phone | | + + + | Preferred Language | Unknown | + + + | Marital Status | Single | + + + | Zoroastrianism Affiliation | Unknown | + + + | Race | White | + + + | Ethnic Group | Not or | + + + Author + + + | Author | [facility] | | | and [place] | + + + | Organization | [facility] | | | [...] Team Providers + +------+ + | Care Seamer Panty Hose Name | Role | Phone | + +------+ + | Chaitanya Khanna MD | PCP | | + +------+ + Encounter Details +--------+ + + + + | Date | Type | Department | Care Team | Description | +--------+ + + + + | 02/02/ | Transcribed | [facility] | Chaitanya Kahnna | Hypertension | | 2014 | Orders | CARDIOLOGY [address] | [address] | (Primary Dx) | | | | [place], | [place] | | | | | [place] [address] | [place] [address] | | | | | [phone] | [phone] | | | | | | | [...] as of this encounter Plan of Treatment + +------+--------+ + + | Name | Type | Priori | Associated Diagnoses | Order Schedule | | | | ty | | | + +------+--------+ + + | 24 hour blood | ECG | Routin | Hypertension | Expected: 02/02/2014 | | pressure monitor | | e | | (Approximate), | | | | | | Expires: 02/02/2015 | + +------+--------+ + + documented as of this encounter Visit Diagnoses + + | Diagnosis | + + | Hypertension - Primary Unspecified essential hypertension | + + documented in this encounter"
[2019-12-07] MEDS ORDERED: CYCLOBENZAPRINE10 MG PO (13:46)
[2019-12-07] MEDS ORDERED: TENORMIN50 MG PO (13:46)
[2019-12-07] MEDS ORDERED: LISINOPRIL-HCT1 EACH PO (13:46)
[2019-12-07] MEDS ORDERED: DICLOFENAC SOD100 G1 TOP (13:47)
[2019-12-07] MEDS ORDERED: K-TAB ER20 MEQ PO (13:48)
[2019-12-07] MEDS ORDERED: FOLIXAPURE5000 UNIT PO (13:49)
[2019-12-07] MEDS ORDERED: B COMPLEX1 EACH PO (13:50)
[2019-12-07] MEDS ORDERED: MEGA BIOTIN10000 MCG PO (13:50)
[2019-12-07] MEDS ORDERED: VITAMIN C1000 MG PO (13:50)
[2019-12-07] MEDS ORDERED: PREDNISONE20 MG PO (15:09)
[2019-12-07] MEDS ORDERED: MECLIZINE HCL25 MG PO (15:09)
[2019-12-07] MEDS ORDERED: SUDOGEST30 MG PO (15:09)
--- NOTE | 2019-12-08 09:16 | EKG ---
[facility] [address] [facility] [place] [address] Signed Sinus rhythm with 1st degree AV block Incomplete left bundle branch block Borderline ECG No previous ECGs available Confirmed by MEMO WALKER MD ([id number]) on 12/08/2019 9:16:34 AM Electronically Signed By: MEMO WALKER MD 12/08/1917 PATIENT NAME: ELAINA ROQUE RUT Electrocardiogram DATE OF : 78 PHYSICIAN: MEMO WALKER MD REPORT #: [id number] REPORT IS CONFIDENTIAL AND NOT TO BE RELEASED WITHOUT AUTHORIZATION
== END 2019-12-07 15:25 | disposition home or self-care (01) ==
LOC: ED 12:57
DX: H83.01 Labyrinthitis, right ear (principal); H69.81 Other specified disorders of Eustachian tube, right ear; I10 Essential (primary) hypertension; G43.909 Migraine, unspecified, not intractable, without status migrainosus; J45.909 Unspecified asthma, uncomplicated; Z88.8 Allergy status to other drugs, medicaments and biological substances; Z88.5 Allergy status to narcotic agent; Z91.040 Latex allergy status; Z79.899 Other long term (current) drug therapy
CPT/HCPCS: 93005; 93010; 99284-25; J1100

== ENCOUNTER 2020-02-29 21:14 | Emergency (ER) | payer OTHER ==
[~2020-02-29] VITALS: Ht 182.9 cm; Wt 244.9 kg
[~2020-02-29 21:14] MED LIST: B COMPLEX1 EACH PO; CYCLOBENZAPRINE10 MG PO; DICLOFENAC SOD100 G1 TOP; FOLIXAPURE5000 UNIT PO; K-TAB ER20 MEQ PO; LISINOPRIL-HCT1 EACH PO; MECLIZINE HCL25 MG PO; MEGA BIOTIN10000 MCG PO; PREDNISONE20 MG PO; SUDOGEST30 MG PO; TENORMIN50 MG PO; VITAMIN C1000 MG PO
== END 2020-03-01 00:28 | disposition home or self-care (01) ==
LOC: ED 21:14
DX: R45.851 Suicidal ideations (principal); I10 Essential (primary) hypertension; G43.909 Migraine, unspecified, not intractable, without status migrainosus; J45.909 Unspecified asthma, uncomplicated; Z88.8 Allergy status to other drugs, medicaments and biological substances; Z88.5 Allergy status to narcotic agent; Z91.040 Latex allergy status; Z79.899 Other long term (current) drug therapy
CPT/HCPCS: 80053; 80176; 81001; 84443; 84703; 85025; 99284; G0480

== ENCOUNTER 2022-12-10 19:47 | Emergency (ER) | payer OTHER ==
[~2022-12-10] VITALS: Ht 182.9 cm; Wt 244.9 kg
[2022-12-10] MEDS ORDERED: OZEMPIC1 MG/0.71 (20:33)
[2022-12-10] MEDS ORDERED: WELLBUTRIN SR200 MG (20:33)
[2022-12-10 21:08] LABS: BASOPHILS 0.4 % (0-2); EOSINOPHILS 0.6 % (0-6); HEMATOCRIT 45.9 % (35.0-50.0); HEMOGLOBIN 14.9 g/dL (12.0-18.0); LYMPHOCYTES 8.8 % (24-44); MCH 27.1 (27-36); MCHC 32.4 g/dl (30-36); MCV 83.6 fl (81-99); MONOCYTES 6.1 % (0-12); NEUTROPHILS 84.1 % (39-80); PLATELET COUNT 250 K/uL (140-440); RDW 14.8 (10.5-15.0)
[2022-12-10 21:17] LABS: ALBUMIN 3.9 g/dL (3.4-5.0); ALBUMIN/GLOBULIN RATIO 0.87 (1.1-2.4); BILIRUBIN, TOTAL 0.8 ng/dL (0.2-1.0); BUN/CREATININE RATIO 15.21 (6.0-28.6); CALCIUM 10.1 mg/dL (8.5-10.1); CREATININE, SERUM 1.38 mg/dL (0.55-1.02); PROTEIN, TOTAL 8.4 g/dL (6.4-8.2)
[2022-12-10 22:55] LABS: BILIRUBIN, URINE NEGATIVE (negative); BLOOD/HGB, URINE MODERATE (Negative); KETONE, URINE NEGATIVE (Negative); LEUK ESTERASE, URINE SMALL (negative); NITRITE, URINE NEGATIVE (negative)
[2022-12-10 23:00] LABS: EPITHELIAL CELLS, URINE SQUAMOUS 1+ /lpf (0-1+); RED BLOOD CELLS, URINE 21-40 /hpf (0-5)
[2022-12-10 23:01] LABS: BACTERIA, URINE RARE /hpf (negative); CASTS, URINE NONE SEEN \\lpf; CRYSTALS, URINE NONE SEEN (0-1+); REFLEX CULTURE, URINE Yes (No); WHITE BLOOD CELLS, URINE 21-40 /HPF (0-5)
[2022-12-10] MEDS ORDERED: HYDROCODON-ACE1 EA10 PO (23:09)
[2022-12-10] MEDS ORDERED: MACROBID 100 M100 MG PO (23:09)
[2022-12-10 23:33] VITALS: BP 165/106
[2022-12-10 23:54] LABS: INFLUENZA B NAA NEGATIVE (NEGATIVE); RESPIRATORY SYNCYTIAL VIR NAA NEGATIVE (NEGATIVE)
== END 2022-12-10 23:23 | disposition home or self-care (01) ==
LOC: ED 19:47
PROVIDERS: Family Medicine
DX: N13.2 Hydronephrosis with renal and ureteral calculous obstruction (principal); N39.0 Urinary tract infection, site not specified; I10 Essential (primary) hypertension; E66.01 Morbid (severe) obesity due to excess calories; J45.909 Unspecified asthma, uncomplicated; Z20.822 Contact with and (suspected) exposure to COVID-19; Z88.5 Allergy status to narcotic agent; Z91.040 Latex allergy status; Z79.899 Other long term (current) drug therapy; Z79.85 Long-term (current) use of injectable non-insulin antidiabetic drugs
CPT/HCPCS: 36415; 74177; 80053; 81001; 83690; 84703; 85025; 87088; 87502; 96375; 99284-25; A9270; C9803; J2405; J3010; J7030; Q9967; U0002

== ENCOUNTER 2023-07-13 12:22 | Emergency (ER) | payer OTHER ==
[~2023-07-13] VITALS: Ht 182.9 cm; Wt 241.9 kg
[~2023-07-13 12:22] MED LIST changes: +HYDROCODON-ACE1 EA10 PO; +MACROBID 100 M100 MG PO; +OZEMPIC1 MG/0.71; +WELLBUTRIN SR200 MG
[2023-07-13] MEDS ORDERED: ASPIRIN 81 MG CHEW PO ONE ×2 (12:30→16:45)
[2023-07-13] MEDS ORDERED: FAMOTIDINE20 MG PO (12:37)
[2023-07-13 12:49] LABS: BASOPHILS 0.4 % (0-2); EOSINOPHILS 0.8 % (0-6); HEMATOCRIT 41.2 % (35.0-50.0); HEMOGLOBIN 13.7 g/dL (12.0-18.0); LYMPHOCYTES 12.4 % (24-44); MCH 28.3 (27-36); MCHC 33.3 g/dl (30-36); MCV 84.9 fl (81-99); MONOCYTES 7.8 % (0-12); NEUTROPHILS 78.6 % (39-80); PLATELET COUNT 224 K/uL (140-440); RBC 4.85 M/ul (4.3-5.7); RDW 14.7 (10.5-15.0)
[2023-07-13 13:07] LABS: ALBUMIN 3.5 g/dL (3.4-5.0); ALBUMIN/GLOBULIN RATIO 0.9 (1.1-2.4); ANION GAP 11.9 (7-21); BILIRUBIN, TOTAL 0.4 ng/dL (0.2-1.0); CALCIUM 8.8 mg/dL (8.5-10.1); CREATININE, SERUM 1.2 mg/dL (0.55-1.02); MAGNESIUM 1.7 mg/dL (1.8-2.4); POTASSIUM 3.9 mmol/L (3.5-5.1); PROTEIN, TOTAL 7.4 g/dL (6.4-8.2)
[2023-07-13] MEDS ORDERED: ALBUTEROL/IPRATROPIUM 3 ML NEB INH ONE (15:15)
[2023-07-13] MEDS ORDERED: LORazepam 2 MG/ML VIAL IV ONE (16:30)
[2023-07-13] MEDS ORDERED: CLOPIDOGREL BISULFATE 75 MG TAB PO SCH (17:00)
[2023-07-13] MEDS ORDERED: TENECTEPLASE 50 MG/10 ML VIAL IV ONE (17:00)
[2023-07-13] MEDS ORDERED: NITROGLYCERIN 50MG/D5W 250 ML IV SCH (17:00)
[2023-07-13 17:10] LABS: INR 0.98 (0.80-1.30); PROTIME 12.6 Sec (11.2-14.2)
[2023-07-13 17:12] LABS: PARTIAL THROMBOPLASTIN TIME 28.6 Sec (22.9-41.3)
[2023-07-13] MEDS ORDERED: HEPARIN SOD,PORK IN 0.45% NACL 500 ML IV SCH (17:15)
[2023-07-13] MEDS ORDERED: HEParin SOD (PORCINE) 5,000 UNIT/ML VIAL IV ONE (17:15)
[2023-07-13] MEDS ORDERED: CLOPIDOGREL BISULFATE 75 MG TAB ONE (17:36)
[2023-07-13] MEDS ORDERED: CLOPIDOGREL BISULFATE 75 MG TAB PO ONE (17:45)
[2023-07-13 19:16] LABS: ABO B; RH POSITIVE
[2023-07-13 19:17] LABS: ANTIBODY SCREEN NEGATIVE
[2023-07-13 19:42] VITALS: BP 148/85
--- NOTE | 2023-07-13 22:54 | EKG ---
[facility] [address] [facility] [place] [address] Signed Sinus rhythm with occasional premature ventricular complexes Incomplete left bundle branch block Borderline ECG When compared with ECG of 07-DEC-2019 13:31, premature ventricular complexes are now present T wave inversion no longer evident in Inferior leads Confirmed by Kirsten Jenkins MD () on 07/13/2023 10:54:38 PM Electronically Signed By: KIRSTEN JENKINS MD 07/13/23 2254 PATIENT NAME: HERMELINDOELAINA DUMONT RUT Electrocardiogram DATE OF : 78 PHYSICIAN: KIRSTEN JENKINS MD REPORT #: [id number] REPORT IS CONFIDENTIAL AND NOT TO BE RELEASED WITHOUT AUTHORIZATION
--- NOTE | 2023-07-13 22:58 | EKG ---
[facility] [address] [place] [address] Signed Age and gender specific ECG analysis Undetermined rhythm Incomplete left bundle branch block ST elevation, consider inferior injury or acute infarct ACUTE OR / STEMI Consider right ventricular involvement in acute inferior infarct Abnormal ECG When compared with ECG of 13-JUL-2023 12:27, Significant changes have occurred Confirmed by Kirsten Jenkins MD () on 07/13/2023 10:59:26 PM Electronically Signed By: KIRSTEN JENKINS MD 07/13/23 2258 PATIENT NAME: ELAINA ROQUE Electrocardiogram DATE OF : 78 PHYSICIAN: KIRSTEN JENKINS MD REPORT #: [id number] REPORT IS CONFIDENTIAL AND NOT TO BE RELEASED WITHOUT AUTHORIZATION
--- NOTE | 2023-07-13 23:00 | EKG ---
[facility] [address] [place] [address] Signed Sinus rhythm with 1st degree AV block Incomplete left bundle branch block Minimal voltage criteria for LVH, may be normal variant ( [place] product ) Borderline ECG When compared with ECG of 13-JUL-2023 16:26, Previous ECG has undetermined rhythm, needs review Questionable change in QRS axis ST no longer elevated in Inferior leads ST no longer depressed in Anterolateral leads Confirmed by Kirsten Jenkins MD () on 07/13/2023 11:00:19 PM Electronically Signed By: KIRSTEN JENKINS MD 07/13/23 2300 PATIENT NAME: ELAINA ROQUE Electrocardiogram DATE OF : 78 PHYSICIAN: KIRSTEN JENKINS MD REPORT #: [id number] REPORT IS CONFIDENTIAL AND NOT TO BE RELEASED WITHOUT AUTHORIZATION
[2023-07-14] MEDS ORDERED: CLOPIDOGREL BISULFATE 75 MG TAB PO SCH (09:00)
== END 2023-07-13 19:40 | disposition short-term general hospital (02) ==
LOC: ED 12:22
PROVIDERS: Emergency Medicine
DX: I21.3 ST elevation (STEMI) myocardial infarction of unspecified site (principal); I10 Essential (primary) hypertension; E66.01 Morbid (severe) obesity due to excess calories; Z88.5 Allergy status to narcotic agent; Z88.8 Allergy status to other drugs, medicaments and biological substances; Z91.040 Latex allergy status; Z79.899 Other long term (current) drug therapy
CPT/HCPCS: 36415; 71045; 80053; 83735; 83880; 84484; 85025; 85379; 85610; 85730; 86850; 86900; 86901; 93005; 93010; 94640; A9270; J1644; J2060